=== PATIENT | female | born 1995 | race Caucasian/White ===

== ENCOUNTER → 2019-03-29 | Outpatient (CLI) | payer OTHER, MEDICAID, SELFPAY ==
[2019-03-29 14:43] VITALS: BMI 27.4
[2019-03-29 21:54] LABS: Chlamydia Trachomatis by PCR Negative (Negative); Neisserai gonorrhoeae by PCR Negative (Negative); Probe Check PASS; Sample Adequacy Control PASS; Specimen Processing Control PASS
[2019-04-03 15:48] LABS: HPV Reflexed? NOT INDICATED
== END | disposition home or self-care (01) ==
LOC: LABSPEC 16:52
PROVIDERS: Referring Provider Obstetrics & Gynecology; Visit Provider Obstetrics & Gynecology
DX: Z34.90 Encounter for supervision of normal pregnancy, unspecified, unspecified trimester (principal); Z12.4 Encounter for screening for malignant neoplasm of cervix
CPT/HCPCS: 87086; 87088; 87491; 87591; 87624; 88175; G0145

== ENCOUNTER → 2019-03-29 | Outpatient (CLI) | payer MEDICAID, SELFPAY ==
[2019-03-29 14:43] VITALS: BMI 27.4
[2019-03-29 15:37] LABS: Absolute Lymphocyte Count 2.66 X10^3/uL (0.83-4.51); Absolute Neutrophil Count 8.8 X10^3/uL (2.0-7.7); Basophil# 0.05 X10^3/uL; Basophil% 0.4 % (0-1); Eosinophil# 0.28 X10^3/uL; Eosinophils% 2.2 % (0-5); Hemoglobin 13.3 g/dL (12.0-15.0); Lymphocyte # 2.66 X10^3/ul (4.0); Lymphocyte % 21.2 % (19-41); Mean Corp Hgb Conc 34.1 g/dL (32-36); Mean Corpuscular Hgb 29.8 pg (27.0-32.0); Mean Corpuscular Volume 87.4 fL (81-99); Mean Platelet Vol. 9.5 fl (6.2-12.0); Monocyte# 0.73 X10^3/uL; Monocyte% 5.8 % (0-10); NRBC Flagged by Analyzer 0 % (0-5); Platelet Count 347 K/mm3 (150-450); RBC Distribution Width SD 38.6 fl (35.1-43.9); Red Blood Count 4.46 M/mm3 (4.2-5.4); White Blood Count 12.6 K/mm3 (4.4-11.0)
[2019-03-30 04:46] LABS: Rapid Plasmin Reagin (RPR) NONREACTIVE (NONREACTIVE)
[2019-03-30 09:23] LABS: HIV - WCH Non-Reactive (Nonreactive); Hepatitis B Surface Antigen Non-Reactive (Nonreactive); Rubella IgG 9.8 IU/mL
== END | disposition home or self-care (01) ==
PROVIDERS: Referring Provider Obstetrics & Gynecology; Visit Provider Obstetrics & Gynecology
DX: Z34.90 Encounter for supervision of normal pregnancy, unspecified, unspecified trimester (principal)
CPT/HCPCS: 85025; 86592; 86703; 86762; 86850; 86900; 87340

== ENCOUNTER → 2019-04-16 | Outpatient (CLI) | payer OTHER, MEDICAID, SELFPAY ==
[2019-03-29 14:43] VITALS: BMI 27.4
== END | disposition home or self-care (01) ==
PROVIDERS: Referring Provider Obstetrics & Gynecology; Visit Provider Obstetrics & Gynecology
DX: Z34.82 Encounter for supervision of other normal pregnancy, second trimester (principal)
CPT/HCPCS: 36415

== ENCOUNTER → 2019-05-25 15:20 | Outpatient (CLI) | payer OTHER, MEDICAID, SELFPAY ==
[2019-05-25 14:58] VITALS: BMI 27.4
== END ==
PROVIDERS: Referring Provider Obstetrics & Gynecology; Visit Provider Obstetrics & Gynecology
DX: Z36.9 Encounter for antenatal screening, unspecified (principal)
CPT/HCPCS: 36415

== ENCOUNTER → 2019-07-17 11:28 | Outpatient (CLI) | payer OTHER, MEDICAID, SELFPAY ==
[2019-06-22 14:56] VITALS: BMI 30.7
[2019-07-17 13:20] LABS: Absolute Lymphocyte Count 2.08 X10^3/uL (0.83-4.51); Absolute Neutrophil Count 8.5 X10^3/uL (2.0-7.7); Basophil# 0.03 X10^3/uL; Basophil% 0.3 % (0-1); Eosinophil# 0.19 X10^3/uL; Eosinophils% 1.7 % (0-5); Hematocrit 33.5 % (37-47); Hemoglobin 11.2 g/dL (12.0-15.0); Lymphocyte # 2.08 X10^3/ul (4.0); Lymphocyte % 18.3 % (19-41); Mean Corp Hgb Conc 33.4 g/dL (32-36); Mean Corpuscular Hgb 29.9 pg (27.0-32.0); Mean Corpuscular Volume 89.3 fL (81-99); Mean Platelet Vol. 10.1 fl (6.2-12.0); Monocyte# 0.52 X10^3/uL; Monocyte% 4.6 % (0-10); NRBC Flagged by Analyzer 0 % (0-5); Neutrophil # 8.46 X10^3/uL (2.7-7.7); Neutrophil % 74.5 % (47-70); Platelet Count 338 K/mm3 (150-450); RBC Distribution Width CV 12.2 % (11.6-14.6); RBC Distribution Width SD 40.2 fl (35.1-43.9); Red Blood Count 3.75 M/mm3 (4.2-5.4); White Blood Count 11.4 K/mm3 (4.4-11.0)
[2019-07-17 14:01] LABS: Glucose Challenge Gest 1H 50g 148 mg/dL (70-140)
== END ==
PROVIDERS: Nurse Practitioner Women's Health; Referring Provider Obstetrics & Gynecology; Visit Provider Obstetrics & Gynecology
DX: Z34.90 Encounter for supervision of normal pregnancy, unspecified, unspecified trimester (principal)
CPT/HCPCS: 36415; 82950; 85025

== ENCOUNTER → 2019-07-18 08:42 | Outpatient (CLI) | payer OTHER, MEDICAID, SELFPAY ==
[2019-07-17 14:01] VITALS: BMI 30.7
[2019-07-18 10:08] LABS: Glucose GTT-Gestation. Fasting 99 mg/dL (<105)
[2019-07-18 10:46] LABS: Glucose GTT-Gestational 1 Hr 222 mg/dL (<190)
[2019-07-18 12:35] LABS: Glucose GTT-Gestational 2 Hr 153 mg/dL (<165)
[2019-07-18 13:34] LABS: Glucose GTT-Gestational 3 Hr 64 L (<145)
== END ==
PROVIDERS: Referring Provider Nurse Practitioner Women's Health; Visit Provider Nurse Practitioner Women's Health
DX: O99.810 Abnormal glucose complicating pregnancy (principal); Z3A.00 Weeks of gestation of pregnancy not specified
CPT/HCPCS: 36415; 82951; 82952

== ENCOUNTER 2019-08-20 08:30 | Outpatient (RCR) | payer OTHER, MEDICAID, SELFPAY ==
[2019-07-17 14:01] VITALS: BMI 30.7
== END 2019-08-20 23:59 | disposition home or self-care (01) ==
LOC: NS 08:30
PROVIDERS: Visit Provider Nurse Practitioner Women's Health
DX: Z71.3 Dietary counseling and surveillance (principal); O24.419 Gestational diabetes mellitus in pregnancy, unspecified control; Z3A.00 Weeks of gestation of pregnancy not specified
CPT/HCPCS: 97802; G0108

== ENCOUNTER → 2019-09-26 | Outpatient (CLI) | payer MEDICAID, SELFPAY ==
[2019-09-26 11:21] VITALS: BMI 30.7
== END | disposition home or self-care (01) ==
PROVIDERS: Referring Provider Obstetrics & Gynecology; Visit Provider Obstetrics & Gynecology
DX: Z34.93 Encounter for supervision of normal pregnancy, unspecified, third trimester (principal); Z3A.36 36 weeks gestation of pregnancy
CPT/HCPCS: 87081

== ENCOUNTER 2019-10-24 19:00 | Inpatient (IN) | payer MEDICAID, SELFPAY ==
[2019-07-17 14:01] VITALS: BMI 30.7
[2019-10-18 10:14] VITALS: BMI 30.7
[2019-10-24 19:31] VITALS: BP 143/80; PULSE 100
[2019-10-24 19:33] VITALS: BP 143/80; PULSE 100; TEMP 98.4; O2SAT 98
[2019-10-24 19:44] VITALS: BMI 33.7
[2019-10-24] MEDS: Lactated Ringers 1,000 ML 50 ML IV (19:55)
[2019-10-24 20:18] LABS: Absolute Lymphocyte Count 2.51 X10^3/uL (0.83-4.51); Absolute Neutrophil Count 9.3 X10^3/uL (2.0-7.7); Basophil# 0.01 X10^3/uL; Basophil% 0.1 % (0-1); Eosinophil# 0.14 X10^3/uL; Eosinophils% 1.1 % (0-5); Hematocrit 37.8 % (37-47); Hemoglobin 12.4 g/dL (12.0-15.0); Lymphocyte # 2.51 X10^3/ul (4.0); Lymphocyte % 19.5 % (19-41); Mean Corp Hgb Conc 32.8 g/dL (32-36); Mean Corpuscular Volume 88.5 fL (81-99); Mean Platelet Vol. 11.3 fl (6.2-12.0); Monocyte# 0.77 X10^3/uL; NRBC Flagged by Analyzer 0 % (0-5); Neutrophil # 9.34 X10^3/uL (2.7-7.7); Neutrophil % 72.7 % (47-70); Platelet Count 277 K/mm3 (150-450); RBC Distribution Width CV 13.1 % (11.6-14.6); RBC Distribution Width SD 42.3 fl (35.1-43.9); Red Blood Count 4.27 M/mm3 (4.2-5.4); White Blood Count 12.9 K/mm3 (4.4-11.0)
--- NOTE | 2019-10-24 20:43 | HP.PCM_ITS ---
- Problem List (1) Gestational diabetes Status: Acute Qualifiers: Comment: diet controlled, Growth US q4w at 32 wk. weekly nsts starting at 32 weeks deliver by 40. Growth US 2 normal (2) Status: Acute Qualifiers: Comment: carrier, NIPT low risk. AFP negative. Anatomy FU US normal but still limited views of spine. (3) Supervision of normal Status: Acute Qualifiers: Comment: PRR NICOLE 10/24/19girl juan boyfriend Mohsen (4) Tobacco use complicating Status: Acute Qualifiers: Comment: encouraged cessation History and Physical Date of Admission: 10/24/19 Intake Vital Signs 10/18/19 BMI 30.7 10/18/19 Height 5 ft 6 in 10/18/19 Weight: 209 lb 10/18/19 BMI 33.7 10/18/19 BP 110/86 H Intake Visit Reasons: 39 WK OB/NST Chief Complaint: est ob Syrup Blender Required: No Is patient in pain?: No Allergies BEE STINGS Allergy (Uncoded 10/18/19 10:13) Rash Medications vitamin#30 30 mg iron-10 mg iron-folic acid 1 mg-omg3 capsule cap PO cap 03/29/19 [History Confirmed 10/11/19] blood sugar diagnostic See Rx Instructions .ROUTE .MEDSUPPLY #100 ea 07/18/19 [Rx Confirmed 10/18/19] blood-glucose meter See Rx Instructions .ROUTE .MEDSUPPLY #1 ea 07/18/19 [Rx Confirmed 10/18/19] Last Menstral Period: 01/17/19 Zika: Zika virus screening: Negative : No PFSH PFSH Medical History History of depression (Acute) Family History Grandfather Myocardial infarction Social History (Updated 10/18/19 @ 11:[address] 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 OB Visit NICOLE Calculator Estimated Delivery Date Method Current WG Current Estimate 10/24/19 LMP (Certain) 40w0d Expected Delivery Route/Plan Labor Preferences- labor support person: Mohsen pain management options preferred: epidural if needed cut cord/dad catch: yes : yes PP control planned: pill discussed possible routes of delivery and associated risks: [] special requests: [] Specific Issue/Plans flu vaccine: given tdap vaccine: given rhogam: na LARC form signed: yes Problem list reviewed and updated with the most current plan of care details and appropriate orders placed. Relevant counseling for the gestational age provided. Continue routine care and follow up unless otherwise noted in visit notes/problem list details Initial Weight: Not Recorded Date EGA Weight BP Urine Prot Glucose FHR FuHt Pres Dilation Effaced St Visit Note 04/27/19 14w 2d 184 lb 8 oz 134/80 Negative Negative 150 no vb cramping 05/25/19 18w 2d 188 lb 122/76 Negative Negative 150 no vb cramping 06/22/19 22w 2d 193 lb 134/66 Negative Negative 150 no vb cramping 07/17/19 25w 6d 197 lb 126/70 Negative Negative 154 25 No Vb, LOF. Good FM 08/06/19 28w 5d 194 lb 2 oz 110/62 Negative Negative 160 28 no vb lof good fm no regular ctx BS fairly controlled. tdap. discussed delivery by 40 weeks 08/21/19 30w 6d 195 lb 6 oz 110/75 Negative Negative 150 32 S- no vb lof good fm no regular ctx FBS elevated sometimes- continue to follow 09/04/19 32w 6d 196 lb 4 oz 132/80 Negative Negative 140 33 SM- no vb lof good fm no regular ctx BS well controlled 09/18/19 34w 6d 198 lb 2 oz 117/76 Negative Negative 145 34 MH-reactive NST. Good FM. NO VB, LOF. BS well controlled 09/26/19 36w 0d 200 lb 108/62 Negative Negative 150 36 SM- no vb lof good fm no regular ctx reactive nst gbs today 10/03/19 37w 0d 200 lb 111/75 Negative Negative 10/11/19 38w 1d 202 lb 121/81 Negative Negative 140 37 1 SM- no vb lof good fm no regular ctx BS well controlled 10/18/19 39w 1d 209 lb 110/86 Negative Negative 140 plan IOL by due date Notes Visit Date: 10/18/19 ??No visit notes to display Visit Date: 10/11/19 ??No visit notes to display Visit Date: 10/03/19 ??No visit notes to display Visit Date: 09/26/19 ??No visit notes to display Visit Date: 09/18/19 ??No visit notes to display Visit Date: 09/04/19 ??No visit notes to display Visit Date: 08/21/19 ??No visit notes to display Visit Date: 08/06/19 ??no vb lof good fm no regular ctx BS fairly controlled. tdap. discussed delivery by 40 weeks ??Kiley Haley MD on 08/06/19 Visit Date: 07/17/19 ??No Vb, LOF. Good FM ??Danielle Ugarte NP-Blanca on 07/17/19 Visit Date: 06/22/19 ??no vb cramping ??Kiley Haley MD on 06/22/19 Visit Date: 05/25/19 ??no vb cramping ??Kiley Haley MD on 05/25/19 Visit Date: 04/27/19 ??no vb cramping ??Kiley Haley MD on 04/27/19 ACOG First Trimester First Trimester: Desire for , Alcohol, Tobacco Cessation, Illicit/Recreational Drug/Substance Use, Intimate Partner Violence, Barriers to care, Unstable Housing, Communication Barriers, Environmental/Work Hazards, Anticipated Course of Care, Toxoplasmosis Precations, Use of Any medications, Sexual activity, Exercise, Dental Care, Sauna/Hot tub use, Seat Belt use, Childbirth classes/Hospital facilities, , Travel, Indic ations for US and Screening for Aneuploidy Second Trimester Second Trimester: Signs and Symptoms of Labor, Selecting a care provider, Reproductive Life Planning, Care Planning, Tobacco Cessation, Depression/Anxiety and Intimate Partner Violence Third Trimester Third Trimester: Pain Management Plans, Labor support person(s), Immediate Larc, Movement Monitoring and Infant Feeding Yes ; discussed Trial of Labor after Counseling or discussed Circumcision preference Diagnostics Diagnostics Diagnostics Gest Glucose Tolerance MG/DL 07/18/19 Glucose 1 Hr 50 gm 148 mg/dL (70-140) H 07/17/19 Hgb 11.2 g/dL (12.0-15.0) L 07/17/19 Hct 33.5 % (37-47) L 07/17/19 Details: HIV: Urine Culture: Sequential Screen: NIPT Screen: ROS Const Reports system reviewed and no additional complaints, except as docu Card Reports system reviewed and no additional complaints, except as docu Resp Reports system reviewed and no additional complaints, except as docu GI Reports system reviewed and no additional complaints, except as docu, Reports nausea Reports system reviewed and no additional complaints, except as docu Musc Reports system reviewed and no additional complaints, except as docu Exam Const General: cooperative, healthy appearing, comfortable, anxious HENMT Head: normal to inspection Nose: external nose normal Face and sinus: normal facial exam Neck Neck: normal visual inspection, full ROM, no lymphadenopathy Thyroid: thyroid normal Chest Chest palpation & inspection: normal inspection of the chest Resp Effort & Inspection: normal respiratory effort GI Inspection: normal to inspection Palpation: soft, other (gravid uterus) Other: infant vertex and appropriate size for gestational age Other: Cervical Exam: Extrem General: pedal edema Results POC Urinalysis 2 Dip (Clinic) Office Urine Glucose Negative Last Edit by Jessy Cao on 10/18/19 10:0 7 Office Urine Protein Negative Last Edit by Jessy Cao on 10/18/19 10:0 7 POC Urinalysis 2 Dip (Clinic) Office Urine Glucose Negative Last Edit by Jessy Cao on 10/18/19 10:1 6 Office Urine Protein Negative Last Edit by Jessy Cao on 10/18/19 10:1 6 Assessment & Plan Problems 1. Diet controlled gestational diabetes mellitus (GDM) in third trimester O24.410 2. complicated by tobacco use in first trimester O99.331 3. 39 weeks gestation of Z3A.39 4. Encounter for supervision of normal first in first trimester Z34.01 Orders Orders: OB NST Today O24.419 POC Urinalysis 2 Dip (Clinic) Today POC Urinalysis 2 Dip (Clinic) Today Coding Level of Care Code OB Routine Diagnoses Diet controlled gestational diabetes mellitus (GDM) in third trimester O24.410 ??Gestational diabetes mellitus control: diet-controlled ??Trimester: third trimester complicated by tobacco use in first trimester O99.331 ??Trimester: first trimester 39 weeks gestation of Z3A.39 ??Weeks of gestation: 39 weeks Encounter for supervision of normal first in first trimester Z34.01 ??Normal : normal first ??Trimester: first trimester plan IOL Patient presents IOL, plan management for , pitocin/AROM after cytotec prep overnight Pain management: plans epidural. GBS negative. Management of any complications: check BS per protocol I have reviewed the [facility] and made any clinically relevant updates. UPDATE- I have seen the patient and performed any clinically relevant updates to the history and physical exam. Kiley Haley MD
[2019-10-24] MEDS: miSOPROStol 25 MCG TABLET VAGINAL (21:08)
[2019-10-24 21:30] VITALS: TEMP 99.1; O2SAT 97
[2019-10-24 21:31] VITALS: BP 124/75; PULSE 90
[2019-10-24 21:41] LABS: Bedside Glucose 79 mg/dL (70-110)
[2019-10-24 21:41] LABS: Bedside Glucose 84 mg/dL (70-110)
[2019-10-25] VITALS (59 sets, daily range): BP systolic 118–145; BP diastolic 53–89; PULSE 69–137; RESP 18; TEMP 37; O2SAT 97–100
[2019-10-25] MEDS: miSOPROStol 50 MCG TABLET VAGINAL (01:37)
[2019-10-25 01:51] LABS: Bedside Glucose 72 mg/dL (70-110)
[2019-10-25] MEDS: oxyCODONE 5 MG Tablet PO ×2 (04:25→18:31)
[2019-10-25] MEDS: Lactated Ringers 500 ML 999 ML IV ×2 (06:51→16:26)
[2019-10-25] MEDS: Oxytocin 30 units/NS 500 ml 30 UNITS/500 ML IV.SOLN IV (06:53)
[2019-10-25 07:25] LABS: Bedside Glucose 121 mg/dL (70-110)
[2019-10-25 07:25] LABS: Bedside Glucose 74 mg/dL (70-110)
[2019-10-25] MEDS: fentaNYL-bupivacaine (epidural) 100 ML BAG EPIDURAL ×2 (07:56→12:09)
--- NOTE | 2019-10-25 09:39 | PCM.PN.BLA ---
Progress Note FHT: 130 Moderate variability reactive no decelerations category I tracing [place]: regular Contractions s/p cytotec plan pitocin today, arom clear fluid iupc and fse placed. BS monitoring intrapartum.
[2019-10-25] MEDS: Lactated Ringers 1,000 ML 200 ML IV ×2 (10:01→15:14)
[2019-10-25 11:10] LABS: Bedside Glucose 66 mg/dL (70-110)
[2019-10-25 11:35] LABS: Bedside Glucose 84 mg/dL (70-110)
[2019-10-25 12:45] LABS: Bedside Glucose 83 mg/dL (70-110)
[2019-10-25 13:35] LABS: Bedside Glucose 58 mg/dL (70-110)
[2019-10-25] MEDS: Ondansetron 4 MG/2 ML Vial IV (13:37)
[2019-10-25] MEDS: 0.9% Saline Lock 10 ML Syringe IV ×3 (13:37→19:10)
[2019-10-25 14:01] LABS: Bedside Glucose 68 mg/dL (70-110)
[2019-10-25 14:56] LABS: Bedside Glucose 91 mg/dL (70-110)
[2019-10-25] MEDS: proCHLORPERazine 10 MG/2 ML Vial IV (15:14)
[2019-10-25 15:21] LABS: Bedside Glucose 81 mg/dL (70-110)
[2019-10-25] MEDS: Oxytocin 30 units/NS 500 ml 30 UNITS/500 ML IV.SOLN 334 UNITS IV (16:05)
--- NOTE | 2019-10-25 16:20 | PCM.OPRPT ---
Problem List (1) Gestational diabetes Status: Acute Qualifiers: Comment: diet controlled, Growth US q4w at 32 wk. weekly nsts starting at 32 weeks deliver by 40. Growth US 2/ normal (2) Status: Acute Qualifiers: Comment: carrier, NIPT low risk. AFP negative. Anatomy FU US normal but still limited views of spine. (3) Supervision of normal Status: Acute Qualifiers: Comment: PRR NICOLE 10/24/19girl juan boyfriend Mohsen (4) Tobacco use complicating Status: Acute Qualifiers: Comment: encouraged cessation Vaginal Delivery Maternal Presentation: Medically Indicated Induction iol GDMA1 Method of Induction: Pitocin, Cytotec Amniotic Membrane Rupture Type: Artificial Amniotic Fluid Description: Clear Final NICOLE: 10/24/19 Gestational age: 40 Weeks and 1 Days Date of Procedure: 10/25/19 Pre-Operative Diagnosis: iol gdma1 Post-Operative Diagnosis: same Surgery/ Procedure Performed: Spontaneous Vaginal Delivery Type of Anesthesia: Epidural Description of Procedure: Patient began pushing and delivered the head in the [CURRY] presentation. The head was delivered atraumatically. The anterior and posterior shoulders delivered without complication followed by the rest of the infant and the infant was placed on the maternal abdomen. Delayed cord clamping was employed for approximately 60 seconds. Cord was clamped and cut and gentle traction was applied to the cord and the placenta delivered spontaneously immediately following it was noted to be intact with three-vessel cord. The perineum and vagina were inspected and to have a small first-degree perineal laceration. EBL was 300cc. Patient and infant tolerated delivery well. Presentation: CURRY Placental Delivery Description: Spontaneous Placenta Disposition: [facility] Cord Vessel Description: 3 Vessels Cord Entanglement: None Estimated Blood Loss: 300 Infant A gender: Female Episiotomy Description: None Laceration: Perineal Extension/lac, 1st degree Medications given after delivery: IV Pitocin Complications: None Multi Select Codes - Urinary/Genital Urinary/Genital CPT Codes: 10336 Vaginal Delivery [facility]
--- NOTE | 2019-10-25 16:56 | NURSING ---
removed during pushing by Dr. Haley when delivery imminent
[2019-10-25 18:00] LABS: Bedside Glucose 76 mg/dL (70-110)
[2019-10-25] MEDS: Naproxen 250 MG Tablet 500 MG PO (18:07)
[2019-10-26] VITALS (9 sets, daily range): BP systolic 111–142; BP diastolic 54–84; PULSE 82–110; RESP 12–18; TEMP 36.1–37.5; O2SAT 96
[2019-10-26] MEDS: Naproxen 250 MG Tablet 500 MG PO (04:23)
[2019-10-26 07:06] LABS: Bedside Glucose 97 mg/dL (70-110)
[2019-10-26] MEDS: Acetaminophen 500 MG Tablet 1000 MG PO ×2 (09:19→20:57)
[2019-10-26] MEDS: Ketorolac 10 MG Tablet PO (13:07)
[2019-10-26] MEDS: oxyCODONE 5 MG Tablet PO (17:46)
[2019-10-27] MEDS: Naproxen 250 MG Tablet 500 MG PO (00:15)
[2019-10-27 02:00] VITALS: BP 114/68; PULSE 84; RESP 20; TEMP 37.4
[2019-10-27] MEDS: oxyCODONE 5 MG Tablet PO ×2 (02:35→08:00)
--- NOTE | 2019-10-27 06:45 | PCM.PN.OB ---
Subjective: late entry - patient seen 730 am 10/26/19. doing well no complaints pain controlled no CP SOB N V ambulating well tolerating po lochia moderate, - Physical Exam Vitals/I&O's: Vital Signs Temp Pulse Resp BP Pulse Ox 99.3 F H 84 20 H 114/68 96 10/27/19 02:00 10/27/19 02:00 10/27/19 02:00 10/27/19 02:00 10/26/19 19:44 Oxygen Delivery Method Room Air Weight: 209 lb Body Mass Index (BMI) 33.7 Intake and Output for Last 24 Hours 10/25/19 10/26/19 10/27/19 23:59 23:59 23:59 Intake Total 5092.46 / 5092.46 Output Total 3550 / 3550 Balance 1542.46 / 1542.46 Laboratory Results 10/26/19 06:58: POC Glucose 97 Current Medications Acetaminophen (Tylenol) 1,000 mg PO Q8H PRN PRN PRN Reason: Pain Score 1-3 Last Admin: 10/26/19 20:57 Dose: 1,000 mg Documented by: Bisacodyl (Dulcolax) 10 mg RECTAL UD PRN PRN Reason: If no BM Dibucaine (Dibucaine) 1 applic TOPICAL TID PRN PRN; Protocol PRN Reason: Discomfort Glucagon () 1 mg IM .X1 PRN PRN Reason: Hypoglycemia Hydrocortisone (Hytone) 1 applic TOPICAL TID PRN PRN; Protocol PRN Reason: Discomfort Dextrose (Dextrose 10%-Water) 250 mls @ 999 mls/hr IV X1 PRN; Protocol PRN Reason: HYPOGLYCEMIA Methylergonovine Maleate (Methergine) 0.2 mg IM X1 PRN PRN Reason: Excess bleeding/uterine atony Naproxen (Naprosyn) 500 mg PO Q8H PRN PRN PRN Reason: Pain Score 1-310 Last Admin: 10/27/19 00:15 Dose: 500 mg Documented by: Ondansetron HCl (Zofran) 4 mg IV Q4H PRN PRN PRN Reason: Nausea Oxycodone HCl (Oxyir) 5 - 10 mg PO Q4H PRN PRN PRN Reason: Pain Score 4-1010 Last Admin: 10/27/19 02:35 Dose: 5 mg Documented by: Senna/Docusate Sodium (Senokot-S, Rashida-Colace) 1 - 2 tablet PO DAILY PRN PRN PRN Reason: Constipation Simethicone (Mylicon) 80 mg PO PCHS PRN PRN Reason: Indigestion/Stomach pain Sodium Chloride () 5 - 15 ml IV UD PRN PRN Reason: SALINE FLUSH Last Admin: 10/25/19 19:10 Dose: 10 ml Documented by: Medical Necessity - Tobacco Use Smoking Status: Current every day smoker Assessment/Plan All Active Problems (Last Reviewed 10/18/19 @ 10:14 by Jessy Cao) Gestational diabetes (Acute) Tobacco use complicating (Acute) (Acute) Supervision of normal (Acute) s/p PPD # 1 1. routine post delivery care 2. gdma1 3. rh positive 4. rubella immune
--- NOTE | 2019-10-27 06:48 | PCM.PN.OB ---
Subjective: doing well no complaints pain controlled no CP SOB N V ambulating well tolerating po lochia moderate - Physical Exam Vitals/I&O's: Vital Signs Temp Pulse Resp BP Pulse Ox 99.3 F H 84 20 H 114/68 96 10/27/19 02:00 10/27/19 02:00 10/27/19 02:00 10/27/19 02:00 10/26/19 19:44 Oxygen Delivery Method Room Air Weight: 209 lb Body Mass Index (BMI) 33.7 Intake and Output for Last 24 Hours 10/25/19 10/26/19 10/27/19 23:59 23:59 23:59 Intake Total 5092.46 / 5092.46 Output Total 3550 / 3550 Balance 1542.46 / 1542.46 General: Alert, Oriented x3 Laboratory Results 10/26/19 06:58: POC Glucose 97 Current Medications Acetaminophen (Tylenol) 1,000 mg PO Q8H PRN PRN PRN Reason: Pain Score 1-3/10 Last Admin: 10/26/19 20:57 Dose: 1,000 mg Documented by: Bisacodyl (Dulcolax) 10 mg RECTAL UD PRN PRN Reason: If no BM Dibucaine (Dibucaine) 1 applic TOPICAL TID PRN PRN; Protocol PRN Reason: Discomfort Glucagon () 1 mg IM .X1 PRN PRN Reason: Hypoglycemia Hydrocortisone (Hytone) 1 applic TOPICAL TID PRN PRN; Protocol PRN Reason: Discomfort Dextrose (Dextrose 10%-Water) 250 mls @ 999 mls/hr IV X1 PRN; Protocol PRN Reason: HYPOGLYCEMIA Methylergonovine Maleate (Methergine) 0.2 mg IM X1 PRN PRN Reason: Excess bleeding/uterine atony Naproxen (Naprosyn) 500 mg PO Q8H PRN PRN PRN Reason: Pain Score 1-3/10 Last Admin: 10/27/19 00:15 Dose: 500 mg Documented by: Ondansetron HCl (Zofran) 4 mg IV Q4H PRN PRN PRN Reason: Nausea Oxycodone HCl (Oxyir) 5 - 10 mg PO Q4H PRN PRN PRN Reason: Pain Score 4-10/10 Last Admin: 10/27/19 02:35 Dose: 5 mg Documented by: Senna/Docusate Sodium (Senokot-S, Rashida-Colace) 1 - 2 tablet PO DAILY PRN PRN PRN Reason: Constipation Simethicone (Mylicon) 80 mg PO PCHS PRN PRN Reason: Indigestion/Stomach pain Sodium Chloride () 5 - 15 ml IV UD PRN PRN Reason: SALINE FLUSH Last Admin: 10/25/19 19:10 Dose: 10 ml Documented by: Medical Necessity - Tobacco Use Smoking Status: Current every day smoker Assessment/Plan All Active Problems (Last Reviewed 10/18/19 @ 10:14 by Jessy Cao) Gestational diabetes (Acute) Tobacco use complicating (Acute) (Acute) Supervision of normal (Acute) s/p PPD # 2 1. routine post delivery care 2. gdma1 3. rh positive 4. rubella immune
--- NOTE | 2019-10-27 06:49 | DCINST_ITS ---
Discharge Diet: No Restrictions Discharge Activity: Return to Normal Activity, May not drive while taking narcotic pain medications., May Shower May resume sexual activity in: 4-6 weeks Call your doctor if your incision/area has: Continuous Slow Oozing, Sudden Increased Bleeding, Increased Pain/ Swelling, Increased Redness, Foul Smelling Discharge Additional Instructions: If you experience any of the following, contact your healthcare provider. * Bleeding that soaks a pad every hour for 2 hours * Fever 100.4 or higher * Unrelieved incision or abdominal pain * Swelling, redness, discharge or bleeding from your incision or episiotomy site * Your incision begins to separate * Problems urinating (including inability to urinate or burning while urinating). * Visual changes * Severe headache * Flu-like symptoms * Pain or redness in one of both of your breasts * Pain, warmth, tenderness or swelling in your legs, especially the calf area * Frequent nausea and vomiting * Symptoms of depression or anxiety If you experience any of the following, call 911 or go to the nearest Emergency Room. * Chest pain * Problems breathing * Seizure activity * Partial or complete paralysis of a body part, slurred speech, weakness or drooping of the face, or a sudden inability to walk or hold your balance Allergies/Adverse Reactions: Allergies BEE STINGS Allergy (Mild, Uncoded 10/24/19 19:59) Rash Medications to take at Discharge vitamin#30 30 mg iron-10 mg iron-folic acid 1 mg-omg3 capsule 1 cap PO DAILY cap 03/29/19 Blood Sugar Diagnostic [Truetrack Test] See Rx Instructions .ROUTE .MEDSUPPLY 10/24/19 Blood-Glucose Meter [Contour] See Rx Instructions .ROUTE .MEDSUPPLY 10/24/19 Please Follow Up With: Kiley Haley MD - [phone] When: Call to make an appointment with your doctor in 6 weeks. If you had elevated Blood pressure or 4th degree laceration you will need to be seen in 2 weeks. Primary Care Physician: Care Physician,No Primary [Primary Care Provider] - Test Results: Test results from this visit will be discussed in further detail at your follow- up appointment, if applicable.
[2019-10-27 07:48] VITALS: BP 128/71; PULSE 80; RESP 16; TEMP 37; O2SAT 100
--- NOTE | 2019-10-27 08:55 | NURSING ---
Met with Nelli in the Special Care Nursery during her baby's feeding time. She was trying to latch baby holding her in the cradle position and stated she felt frustrated when I entered the room. We discussed breast massage before every feeding/pumping session AND massaging during pumping. I educated her on proper hand position on breast while feeding, stressing the importance of keeping her hands back from the areola. We discussed different positions and successfully latched baby in the football hold with very minimal assistance from IBCLC. Verbal cues were used to guide mother to a successful latch. I showed Nelli what baby's lips look like in the flanged out position during and to check for that when she is feeding. We discussed the importance of pumping after each feeding while she is here and that pumping in these early days if for stimulation which helps milk supply, we are not focussed on obtaining a specific quantity of colostrum/ breastmilk at this time. Mother is using Lansinoh on her nipples as needed for soreness.
[2019-10-27 14:30] VITALS: BP 120/75; PULSE 91; RESP 16; TEMP 36.6; O2SAT 100
== END 2019-10-27 17:25 | disposition home or self-care (01) | DRG 560 ==
PROVIDERS: Admitting Provider Obstetrics & Gynecology; Referring Provider Obstetrics & Gynecology; Visit Provider Obstetrics & Gynecology
DX: O24.420 Gestational diabetes mellitus in childbirth, diet controlled (principal); O99.334 Smoking (tobacco) complicating childbirth; F17.200 Nicotine dependence, unspecified, uncomplicated; O70.0 First degree perineal laceration during delivery; Z37.0 Single live birth; Z3A.40 40 weeks gestation of pregnancy
CPT/HCPCS: 59025; 59050; 82962; 85025; 86850; 86900; 86901; 99218; J7120; A4216; G0378; J2405

== ENCOUNTER 2020-02-16 18:00 | Emergency (ER) | payer MEDICAID, SELFPAY ==
[2019-11-28 14:22] VITALS: BMI 33.7
[2020-02-16 18:01] VITALS: BP 136/53; PULSE 112; RESP 17; TEMP 36.3; O2SAT 96; BMI 30.7
--- NOTE | 2020-02-16 18:15 | ED.VIS.GEN ---
History of Present Illness Chief Complaint: Upper Extremity Injury Informant: Patient Onset: Month(s) Context: Gradual Onset Timing: Waxes and wanes Current Severity: Moderate Maximum Severity: Moderate Narrative: Patient presents secondary to continued right wrist pain. She is left-hand dominant. She reports in November she developed right wrist pain. There was no known injury. She was seen at an outside facility in December and was told to wear a Velcro wrist brace. In spite of doing that she notices no significant improvement. Imaging studies were not done. - Past Medical History (1) History of gestational diabetes Status: Resolved Past Medical History - Allergies and Home Meds Allergies/Adverse Reactions: Allergies BEE STINGS Allergy (Mild, Uncoded 02/16/20 18:01) Rash Primary Care Physician: [facility] Doctor,Out of [NON-STAFF] - Prior records reviewed: Yes Lives: With Family Smoking Status: Current every day smoker Review of Systems General: Denies: Chills, Fever Eyes: Denies: Visual changes - bilaterally ENT: Denies: Bilateral ear pain Cardiovascular: Denies: Chest pain Respiratory: Denies: Dyspnea, Cough Gastrointestinal: Denies: Abdominal pain, Nausea, Vomiting, Diarrhea Musculoskeletal: Reports: Extremity Pain Skin: Denies: Rash Neurological: Denies: Headache Hematologic: Denies: Easy bruising, Easy bleeding Allergy: Denies: Uticaria Physical Exam Vital Signs/Narrative: Vital Signs Temp Pulse Resp BP Pulse Ox 02/16/20 18:01 97.3 F L 112 H 17 136/53 H 96 Inital Vital Signs reviewed: Yes General: Well nourished, Well developed Head: Normocephalic ENT: Moist mucous membranes Neck: Supple Cardiovascular: Regular rate, Regular rhythm Respiratory: No distress Abdomen: Soft, Nontender Extremities: - - Mild tenderness along the radial aspect of the right wrist. No significant edema. No overlying skin changes. No pain with axial load of the thumb. Normal cap refill distally with good sensation and range of motion. Neurological: Alert, Oriented x3 Psychological: Normal affect Diagnostic/Tx/Re-eval Impressions Wrist X-Ray 02/16/20 18:18 IMPRESSION: Normal x-ray examination of the wrist. Electronically Signed: Brenden Sacnhez MD at 19:00 EDT , Service support , 02/16/20 18:18 Wrist min 3 Views [RAD] Stat - Medical Decision Making Test results discussed with patient. She will continue to wear her wrist splint. She will be treated with a course of prednisone. She is referred to Dr. Taylor, on-call for orthopedics if not improving. ED Disposition - Plan for ED Patient: Disposition: Home or Assisted Living Diagnosis: Wrist sprain Instructions: ED Sprain Wrist Prescriptions: Prednisone [Deltasone] 40 mg PO DAILY #8 tab Transmission Status: Pending to [id number] Referrals: [facility] Doctor,Out of [NON-STAFF] - Horacio Taylor DO [STAFF PHYSICIAN] - 1 Week if not improving
--- NOTE | 2020-02-16 18:18 | RAD_ITS ---
STUDY: X-RAY - RIGHT WRIST REASON FOR EXAM: Female, 24 years old. NKI -- PAIN SINCE NOVEMBER TECHNIQUE: 3 view(s) of the wrist were obtained. COMPARISON: None. FINDINGS: Normal visualized distal radius and ulna. Normal radiocarpal articulation. Normal distal radioulnar articulation. Normal carpal bones. Normal carpal articulations. Normal carpometacarpal articulation of the thumb. Normal second through fifth carpometacarpal articulations. Normal visualized metacarpal bones. The soft tissue structures are unremarkable. There is no demonstrated acute fracture. RAD/Wrist min 3 Views IMPRESSION: Normal x-ray examination of the wrist. Electronically Signed: Brenden Sanchez MD at 19:00 EDT , Service support ,
[2020-02-16 20:15] VITALS: BP 125/86; PULSE 88; TEMP -8.8; TEMP 16; O2SAT 97
== END 2020-02-16 20:15 | disposition home or self-care (01) ==
PROVIDERS: Emergency Provider Emergency Medicine
DX: S63.501A Unspecified sprain of right wrist, initial encounter (principal); X58.XXXA Exposure to other specified factors, initial encounter; Y93.9 Activity, unspecified; Y92.9 Unspecified place or not applicable; F17.200 Nicotine dependence, unspecified, uncomplicated
CPT/HCPCS: 73110; 99282

== ENCOUNTER 2022-01-25 22:33 | Emergency (ER) | payer OTHER, MEDICAID, SELFPAY ==
[2022-01-25 22:34] VITALS: BP 149/94; PULSE 120; RESP 18; TEMP 36.1; O2SAT 99; BMI 33.0
[2022-01-25] MEDS: SUMAtriptan 6 MG/0.5 ML Vial SC (22:44)
--- NOTE | 2022-01-25 23:05 | EDS_ITS ---
HPI History of Present Illness Chief Complaint: General Illness Informant: patient Onset/Context/Timing Onset: Weeks Narrative Narrative: Presents worsening paresthesias along ulnar aspect the right arm. She has been on dealing with left arm paresthesias on the ulnar aspect. She seen Ortho Dr. Taylor last months was prescribed a specialized brace and put on meloxicam. She reports was too early for nerve testing. She does not know when her next follow-up is. She states she started having right-sided symptoms and told him that. However that has progressed. She is left-hand dominant. She works with both arms at [employer]. She denies leaning on her elbows. Denies any injuries. States there is some weakness with doing her activities. This evening 6 PM nontraumatic headache photophobia. No fevers. No nausea or vomiting. No aura. She states she took 9 Advil's total with no relief. No cardiac history. No abdominal pain. Prior similar symptoms: Yes [facility] Medical History (Updated 01/25/22 @ 23:[address] Cezar Javier DO) History of depression Home Medications fluoxetine 40 mg capsule 40 mg PO DAILY cap 01/06/22 [History Last Taken Unknown] lorazepam 0.5 mg tablet 0.5 mg PO PRN PRN tab 01/06/22 [History Last Taken Unknown] meloxicam 15 mg tablet 15 mg PO DAILY #30 tab 01/06/22 [Rx Last Taken Unknown] Allergy/AdvReac Type Severity Reaction Status Date / Time BEE STINGS Allergy Mild Rash Uncoded 01/25/22 22:41 Family History Grandfather Myocardial infarction Social History Smoking Status: Current some day smoker tobacco type: cigarettes alcohol intake: never substance use type: does not use caffeine: Yes what type of physical activity do you participate in: walking seatbelt use: always do you feel safe at home: Yes additional social history: [employer]- [employer] ROS ROS ED Constitutional Constitutional ED: Denies chills, fever(s) or sweats Eyes Eyes: Denies change in vision ENT ENT ED: Denies dysphagia or sore throat Cardiovascular Cardiovascular: Denies chest pain, leg edema, palpitations or racing heartbeat Respiratory/Chest Respiratory/Chest: Denies cough, dyspnea or dyspnea on exertion Gastrointestinal Gastrointestinal: Denies abdominal pain, diarrhea, nausea or vomiting Genitourinary Genitourinary ED: Denies dysuria, hematuria or urinary frequency Musculoskeletal Musculoskeletal: Denies back pain, extremity pain or neck pain Integumentary Denies rash or wounds Neurologic Neurologic: Reports headache(s), paresthesias and weakness EXAM Physical Exam Const Vital Signs: 01/25/22 22:34 01/25/22 22:42 Temperature 97.0 F L Temperature Source Temporal Pulse Rate 120 H Respiratory Rate 18 Respiratory Effort Normal Respiratory Pattern Normal Blood Pressure 149/94 H Blood Pressure Mean 112 Pulse Ox 99 Oxygen Delivery Method Room Air Positive well nourished and well developed General Appearance ED: well developed and NAD HEENT Reports moist mucous membranes normocephalic and atraumatic Eyes PERRL, EOMs intact bilaterally and conjunctivae normal General Eye ED: Yes normal appearance of both eyes Neck no lymphadenopathy and supple Neck Narrative: No meningismus. Negative Spurling's. General: Negative for tenderness Chest Wall Chest: Negative for tenderness Resp normal respiratory effort and normal air movement Effort and Inspection: symmetric chest movement; Negative for respiratory distre ss Cardio regular rhythm and no murmurs Rate: tachycardic Peripheral Pulses: pulses 2+ throughout GI normal to inspection, nondistended, normoactive bowel sounds and non-tender Palpation: Negative for guarding or rebound tenderness present Back/Spine no CVA tenderness and no thoracic nor lumbar tenderness Extremity normal to inspection Extremity Narrative: Negative Tinel's to the cubital tunnel bilaterally. General Extremety ED: Negative for edema or tenderness General Extremity: Negative for edema Neuro oriented x3 Neuro Narrative: Reported decreased sensation ulnar aspect of the forearms bi laterally. There is slight weakness to abductor's of the hand bilaterally however is symmetric. Sensorium / Orientation: awake and alert Skin no rashes or lesions noted and no wounds MDM MDM MDM Narrative Medical decision making narrative: Patient has been diagnosed with cubital tunnel syndrome left progressing on the right. She is followed by orthopedics. This is not an emergency situation. 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 For her headache there is no meningismus. She is given Imitrex monitored with improvement of symptoms. I discussed appropriate use of NSAIDs for which she will avoid due to being on meloxicam. She will use Tylenol as needed. She will follow-up with her orthopedist for further testing and treatment as an outpatient. All questions were answered. Discharge Plan Triage Chief Complaint: General Illness ED Provider: Cezar Javier Dx/Rx/DC Orders Clinical Impression: Cubital tunnel syndrome, bilateral, Headache Instructions: What is Cubital Tunnel Syndrome?, Self-Care for Headaches Prescriptions: No Action lorazepam 0.5 mg tablet 0.5 mg PO PRN PRN (Reason: Anxiety) RF: 0 fluoxetine 40 mg capsule 40 mg PO DAILY RF: 0 meloxicam 15 mg tablet 15 mg PO DAILY Qty: 30 RF: 0 Primary Care Provider: Miguelangel Levi Referrals: Horacio Taylor DO [STAFF PHYSICIAN] - 3-5 Days Miguelangel Levi [Primary Care Provider] - 1 Week Activity Restrictions/Additional Instructions: 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 Continue your meloxicam. Follow-up with Dr. Taylor. Avoid other anti-inflammatories as you are already on meloxicam. May use Tylenol 1 g every 6 hours as needed. Disposition Disposition: Home, Self Care Discharge Date/Time: 01/25/22 23:50
== END 2022-01-25 23:50 | disposition home or self-care (01) ==
PROVIDERS: Emergency Provider Emergency Medicine; PCP Student in an Organized Health Care Education/Training Program; Visit Provider Emergency Medicine
DX: G56.23 Lesion of ulnar nerve, bilateral upper limbs (principal); R51.9 Headache, unspecified; F32.A Depression, unspecified; Z79.899 Other long term (current) drug therapy; F17.210 Nicotine dependence, cigarettes, uncomplicated
CPT/HCPCS: 96372; 99282; J3030

== ENCOUNTER → 2022-03-24 | Outpatient (CLI) | payer OTHER, MEDICAID, SELFPAY ==
--- NOTE | 2022-03-24 15:15 | MRI_ITS ---
EXAM: MR CERVICAL SPINE WITHOUT INTRAVENOUS CONTRAST CLINICAL INDICATION: pain/numbness bilat arms TECHNIQUE: Multiplanar and multisequence MR images of the cervical spine without intravenous contrast were performed. This report was created using [employer] report generation technology. COMPARISON: XR Mar 12 2022 8:35am FINDINGS: VERTEBRAE: Unremarkable. Normal vertebral bodies and posterior elements. Normal alignment. Normal craniocervical junction and cervicothoracic junction. No spondylolisthesis. There is preservation of the normal cervical lordosis. SPINAL CORD: Unremarkable in signal and morphology. SOFT TISSUES: Unremarkable. No prevertebral soft tissue swelling. LYMPH NODES: Unremarkable. There is no cervical adenopathy. DISCS/SPINAL CANAL/NEURAL FORAMINA: C2-C3: Unremarkable. Normal disc height and morphology. Normal spinal canal. Normal neuroforamina. C3-C4: Unremarkable. Normal disc height and morphology. Normal spinal canal. Normal neuroforamina. C4-C5: Unremarkable. Normal disc height and morphology. Normal spinal canal. Normal neuroforamina. C5-C6: Unremarkable. Normal disc height and morphology. Normal spinal canal. Normal neuroforamina. C6-C7: Unremarkable. Normal disc height and morphology. Normal spinal canal. Normal neuroforamina. C7-T1: Unremarkable. Normal disc height and morphology. Normal spinal canal. Normal neuroforamina. MRI/Spine Cervical (Routine) IMPRESSION: Unremarkable MRI of the cervical spine. Electronically Signed: Jak Gao MD at 16:51 EDT ,
== END | disposition home or self-care (01) ==
PROVIDERS: PCP Student in an Organized Health Care Education/Training Program; Visit Provider Orthopaedic Surgery
DX: R20.0 Anesthesia of skin (principal); R20.2 Paresthesia of skin; M54.12 Radiculopathy, cervical region
CPT/HCPCS: 72141

== ENCOUNTER 2022-05-23 07:37 | Emergency (ER) | payer MEDICAID, SELFPAY ==
[2022-05-23 07:39] VITALS: BP 132/90; PULSE 90; RESP 16; TEMP 36.6; O2SAT 99; BMI 30.9
--- NOTE | 2022-05-23 07:46 | RAD_ITS ---
STUDY: X-RAY - RIGHT ANKLE REASON FOR EXAM: Female, 26 years old. injury TWISTED ANKLE, PAIN LATERAL TECHNIQUE: 3 view(s) of the ankle. COMPARISON: None. FINDINGS: Normal visualized distal tibia and fibula. Normal medial and lateral malleoli. Normal tibiotalar articulation and ankle mortise. Normal visualized talus and calcaneus. The visualized subtalar, talonavicular, calcaneocuboid and tarsal articulations are normal. There is no demonstrated fracture. Mild soft tissue swelling is present around the ankle. RAD/Ankle min 3 Views IMPRESSION: 1. Mild soft tissue swelling Electronically Signed: Brenden Sanchez MD at 8:14 EDT ,
--- NOTE | 2022-05-23 07:46 | ED.VIS.LOWEX ---
HPI History of Present Illness Chief Complaint: Lower Extremity Injury Informant: patient Occured/Mechanism Comment: Injured on a curb she was stepping onto, unsure if she twisted or what happened. Onset/Context/Timing Onset: Yesterday Context: Sudden Onset Timing: Continuous Quality of Pain: Aching Location: Right ankle Current Severity: Moderate Maximum Severity: Moderate Worsened by: Walking, moving Relieved by: Resting Associated Symptoms Associated Symptoms: Negative for Parasthesia, Weakness or Loss of Funtion Narrative Narrative: Twisted her ankle on a curb yesterday, she has been hobbling on it and walking ever since. She is sprained it before and suspects that is what she did. No other injuries. Swelling laterally. [facility] Medical History (Updated 05/23/22 @ 07:[address] Stone Castellon MD) History of depression Home Medications fluoxetine 40 mg capsule 40 mg PO DAILY 01/06/22 [History Last Taken Unknown] lorazepam 0.5 mg tablet 0.5 mg PO PRN PRN Anxiety 01/06/22 [History Last Taken Unknown] meloxicam 15 mg tablet 15 mg PO DAILY #30 tabs 01/06/22 [Rx Last Taken Unknown] Allergy/AdvReac Type Severity Reaction Status Date / Time bee venom protein (honey bee) Allergy Rash Verified 05/23/22 07:39 Family History Grandfather Myocardial infarction Social History Smoking Status: Current some day smoker tobacco type: cigarettes alcohol intake: never substance use type: does not use caffeine: Yes what type of physical activity do you participate in: walking seatbelt use: always do you feel safe at home: Yes additional social history: [employer] ROS ROS ED Constitutional Constitutional ED: Denies chills or fever(s) Musculoskeletal Musculoskeletal: Reports extremity pain; Denies neck pain Integumentary Denies Abrasions, rash or wounds Neurologic Neurologic: Denies paresthesias or weakness EXAM Physical Exam Const Vital Signs: 05/23/22 07:39 Temperature 97.8 F Temperature Source Temporal Pulse Rate 90 Respiratory Rate 16 Blood Pressure 132/90 H Blood Pressure Mean 104 Pulse Ox 99 Oxygen Delivery Method Room Air Positive well nourished and well developed General Appearance ED: well developed and NAD Neck full ROM and supple Back/Spine normal ROM and normal to inspection Extremity Extremity Narrative: Tenderness and swelling about the lateral malleolus right ankle, nontender medial malleolus, base of the fifth metatarsal, proximal fibula. No instability. There is no movement or significant pain with applying lateral forces to the foot about the ankle. Skin intact no other injuries. Neuro oriented x3, no focal motor deficits and no sensory deficits noted Sensorium / Orientation: alert Psych mental status grossly normal and thought process normal Skin no wounds Rashes: no rashes MDM MDM MDM Narrative Medical decision making narrative: Three-view x-ray series obtained of the right ankle and on my interpretation it is normal showing no acute bony abnormality or mortise asymmetry. Patient will be placed in an Aircast and given appropriate discharge instructions, she was given a dose of Naprosyn as well, she will be offered crutches if she needs them after applying the Aircast. Discharge Plan Triage Chief Complaint: Lower Extremity Injury ED Provider: Stone Castellon Dx/Rx/DC Orders Clinical Impression: Right ankle sprain Instructions: ED Ankle Sprain (Adult) Prescriptions: No Action lorazepam 0.5 mg tablet 0.5 mg PO PRN PRN (Reason: Anxiety) Label Comments: TAKE 1 TABLET BY MOUTH TWICE DAILY NEEDED FOR PANIC ATTACK SYMPTOMS fluoxetine 40 mg capsule 40 mg PO DAILY meloxicam 15 mg tablet 15 mg PO DAILY Qty: 30 0RF Rx Instructions: Do not take in conjunction with other NSAIDs. Tylenol is okay. Primary Care Provider: Miguelangel Levi Referrals: Thomas Green MD [Med Staff - Active Staff] - (if not improving after 2 weeks) Miguelangel Levi [Primary Care Provider] - Disposition Disposition: Home, Self Care
[2022-05-23] MEDS: Naproxen 250 MG Tablet 500 MG PO (08:36)
== END 2022-05-23 08:42 | disposition home or self-care (01) ==
LOC: ED 07:53
PROVIDERS: Emergency Provider Emergency Medicine; PCP Student in an Organized Health Care Education/Training Program; Visit Provider Emergency Medicine
DX: S93.401A Sprain of unspecified ligament of right ankle, initial encounter (principal); F17.210 Nicotine dependence, cigarettes, uncomplicated; X50.1XXA Overexertion from prolonged static or awkward postures, initial encounter
CPT/HCPCS: 73610; 99283

== ENCOUNTER 2022-09-15 13:42 | Day surgery (SDC) | payer MEDICAID, SELFPAY ==
[2022-09-15] VITALS (8 sets, daily range): BP systolic 121–145; BP diastolic 85–100; PULSE 96–103; RESP 17–18; TEMP 36.4–37.3; O2SAT 98–100; BMI 33.4
--- NOTE | 2022-09-15 | POC_PTH ---
PATIENT: NAVID HATFIELD LOC: [facility] [place] U[place][id number] AGE/SX: 26/F ROOM: RE09/15/[address]: Dr. Priya Castillo DO : 1995 BED: DIS: 09/15/2022 SPEC #: [id number] RECD: 09/16/22 08:40 STATUS: MERLE REAdrienne #: [id number] LORE: 09/15/22 00:[address]: Priya Castillo DEPT: SURGICAL PATHOLOGY RECD BY: Antoine Ornelas ENTERED: 09/16/22 09:35 SP TYPE: PROD CONC OTHR DR: Miguelangel Levi Tissues: Product of conception, NOS Procedures: Surgery Specimen Level IV HEADER OPERATION: Suction dilation and curettage PRE-OP DIAGNOSIS: Missed with demise before 20 completed weeks of gestation TISSUE SUBMITTED: Products of conception MICROSCOPIC DIAGNOSIS Endometrium, curettage: Chorionic villi, decidualized stroma and trophoblastic cells consistent with products of conception. AM:nilson 09/17/2022 MICROSCOPIC DESCRIPTION Slides are reviewed. GROSS DESCRIPTION Received in fixative is one container labeled with the patient's name and designated products of conception. The specimen consists of multiple irregular fragments of light to dark cervantes soft tissue that in aggregate measure 11 x 8 x 1 cm. parts are not grossly recognized. Plastic Worker portions are submitted in one cassette. / AM:nilson 09/16/2022 TC:5 CPT: 74754
[2022-09-15] MEDS: Doxycycline 100 MG CAPSULE PO (14:15)
[2022-09-15] MEDS: Lactated Ringers 1,000 ML 15 ML IV (14:16)
[2022-09-15 14:19] LABS: Hematocrit 39.5 % (37-47); Hemoglobin 13.3 g/dL (12.0-15.0); Mean Corp Hgb Conc 33.7 g/dL (32-36); Mean Corpuscular Hgb 29.6 pg (27.0-32.0); Mean Corpuscular Volume 87.8 fL (81-99); Mean Platelet Vol. 9.3 fl (6.2-12.0); Platelet Count 355 K/mm3 (150-450); RBC Distribution Width CV 11.9 % (11.6-14.6); RBC Distribution Width SD 38.5 fl (35.1-43.9); White Blood Count 10.5 K/mm3 (4.4-11.0)
[2022-09-15] MEDS: Lidocaine 1% (30 ml sdv) 30 ML Vial (16:45)
--- NOTE | 2022-09-15 17:01 | PCM.OP.BLANK ---
Operative Report Date of Procedure: 09/15/22 Preoperative diagnosis: 10 weeks missed Postoperative diagnosis: 10 weeks missed Surgery: Suction dilation and curettage Surgeon: Dr. Priya Castillo, Urine output: 20cc Fluids: 900cc Estimated blood loss: 100cc Details of the procedure The patient was taken to the operating room and placed under MAC local anesthesia. She was prepped and draped in the normal sterile fashion the dorsal lithotomy position. Bladder was drained of clear urine and anterior lip of the cervix was grasped and the uterus sounded to 12cm. Cervix was progressively dilated to allow passage of a 9 mm suction curette. Progressive passes were made removing the retained products of conception without complication. Sharp curettage confirmed complete removal of the retained products. A follow up ultrasound confirmed an empty uterus. All instruments were removed from the vagina and excellent hemostasis was noted and the patient was taken to recovery in stable condition. Multi Select Codes Urinary/Genital Urinary/Genital CPT Codes: 53443 Surg Trtmt missed Ab 1TM
--- NOTE | 2022-09-15 17:02 | DCINST_ITS ---
Discharge Instructions Diet Discharge Diet: No restrictions Activity Discharge Activity: Return to Normal Activity, May Shower and May Take a Tub Bath (after 1 week) May resume sexual activity in: 1-2 weeks Weight Bearing Status: Weight bearing as tolerated Lifting Restrictions: none Dressing / Incision Call your doctor if you observe: Fever of 101 or Higher, Using more than 1 pad per hour, Shortness of breath and Uncontrolled pain Follow Up Care Please Follow Up With: Priya Castillo DO When: Call [phone] to schedule appointment. Test Results: Test results from this visit will be discussed in further detail at your follow- up appointment, if applicable. 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
--- NOTE | 2022-09-15 17:38 | PCM.HP.BLA ---
History and Physical Date of Admission: 09/15/22 Intake Vital Signs ? 05/23/2207:39 09/15/2307:33 09/15/2307:35 Height 5 ft 6 in 5 ft 6 in 5 ft 6 in Weight: 192 lb 209 lb 8 oz ? BMI 30.9 33.7 ? BP 132/90 H 120/80 ? Respiration 16 ? ? Pulse 90 ? ? Temp 97.8 F ? ? Pulse Oximetry (%) 99 ? ? Intake Visit Reasons:?NOB LMP 07/04/22,? JV to scan Chief Complaint: NOB Geological Aide Required: No Is patient in pain?: No Allergies bee venom protein (honey bee) Allergy (Verified 09/15/22 08:34) Rash Medications vitamin no.[id number] 28 mg iron-1 mg-200 mg capsule (MATH AND PHYSICS INSTRUCTOR-PNV-DHA) cap PO 08/30/22 [History] Last Menstrual Period: 07/04/22 Zika: Zika virus screening: Negative : No PFSH PFSH Medical History?(Updated 09/15/22 @ 09:34 by Kylie Rojo CNM) History of depression Family History? Grandfather Myocardial infarction Diabetes ?? ? maternalFather Diabetes Social History? adopted:? No household members:? significant other and children housing:? house number of children:? 1 service:? No current occupational status:? unemployed current occupation:? [employer] current occupational exposures/hazards:? No pets and animals:? No history of recent travel:? No sexually active:? Yes Smoking Status:? Former smoker quit date: 08/23/22 alcohol intake:? never substance use type:? does not use well-balanced diet:? daily or most days caffeine:? Yes Type: coffee Number of servings: 2 eating out:? rarely or never during the past year weight has:? increased > 10 lbs what type of physical activity do you participate in:? walking frequency:? 1-2 times per week duration:? 15-30 minutes/day adwoa/zoroastrianism:? None seatbelt use:? always do you feel safe at home:? Yes additional social history:? BF Vidhya Flores (DELORES Melissa Ilir and Kuldeep) History ? ? ? 2 ? Elective abortions ? Hx Para ? ? ? 1 ? Spontaneous abortions ? Hx # Term Pregnancies ? Ectopic pregnancies ? Hx # Pregnancies ? Multiple births ? # of living children ? ? ? 1 Past Pregnancies Del. Date Name GA/Weeks Outcome Route Bth Weight Infant Gen Labor Lgth Anesthesia Del Locatn Provider FOB 10/25/19 Gabbie 40 live - full term ? Female ? epidural [facility] ? Delivery Date: 10/25/19? Last Updated by: Shahida Aj ? ? ? GDMA1 HPI NOB LMP 07/04/22,? JV to scan Details: NAVID HATFIELD is a 26 year old who presents for New OB visit. nausea has improved. increased vaginal discharge with mild odor. ultrasound demonstrated CRL c/w LMP at 10+2, however without HR on doppler. OB Visit NICOLE Calculator ? Estimated Delivery Date Method Current WG Current Estimate 04/10/23 LMP (Certain) 10w 3d Comments: HIV: Urine Culture: Sequential Screen: NIPT Screen: Estimated Due Date: 04/10/23 Menstrual History Last Menstrual Period: 07/04/22 Reported LMP: definite Normal amount/duration: No (Heavy for 2 days ) Frequency in days: 33-35 On hormonal BC at conception: No hCG+: 08/13/22 Antepartum Record Genetic Screening: Congenital Heart Defect: Other, Neural Tube Defect: Other, Hemoglobinopathy Or Carrier: Other, Cystic Fibrosis: Other, Chromosome Abnormality: Other, Matt-Sachs: Other, Hemophilia: Other, Intellectual Disability/Autism: Other, Recurrent Loss/Stillbirth: Other, Other Structural Defect: Other, Other Genetic Disease: Other and Maternal Metabolic Disorder: Other Infection History: Live with someone with TB or Exposed to TB: No, Patient or Partner has history of Genital Herpes: No, Rash or Viral illness since last mentrual period: Yes (rash 08/24/22 possible hand foot mouth child exposed.), Prior GBS-Infected child: No, History of STD: No, HIV Infection: No, History of Hepatitis: No, Recent travel outside of [place]: No, Concern for hepatitis exposure: No and Varicella immune: Yes (immune) Comments: Covid Vaccinated(Moderna) No Boosters Medical History Medical History: Positive: Diabetes (HX of gestational diabetes), Depression/ depression and Relevant family history (Maternal gRANDPA DIABETIC, FATHER DIABETIC, MOTHER PRE-DIABETIC) and Negative: Hypertension, Heart disease, Auto-immune disorder, Kidney disease/UTI, Neurologic/epilepsy, Psychiatric, Hepatitis/liver disease, Varicosities/phlebitis, Thyroid dysfunction, Trauma/domestic violence, History of blood transfusions, D (Rh) Sensitized, Pulmonary (e.g.,TB,Asthma), Seasonal allergies, Drug/latex allergies/reactions, Breast, [employer] surgery, Operations/hospitalizations, Anesthetic complications, History of abnormal pap, Uterine anomaly/janeth, Infertility, Anti-retroviral treatment and Other ACOG First Trimester First Trimester: Desire for , Alcohol, Tobacco Cessation, Illicit/Recreational Drug/Substance Use, Intimate Partner Violence, Barriers to care, Unstable Housing, Communication Barriers, Environmental/Work Hazards, Anticipated Course of Care, Toxoplasmosis Precations, Use of Any medications, Sexual activity, Exercise, Dental Care, Sauna/Hot tub use, Seat Belt use, Childbirth classes/Hospital facilities, Travel, Indications for Ultrasound and Screening for Aneuploidy; Discussed Second Trimester Second Trimester: Signs and Symptoms of Labor, Selecting a care provider, Reproductive Life Planning & Contreception, Care Planning, Tobacco Cessation, Depression/Anxiety and Intimate Partner Violence Third Trimester Third Trimester: Pain Management Plans, Labor support person(s), Immediate Larc, Movement Monitoring and Feeding No ; Discussed Trial of Labor after Counseling and Discussed Circumcision preference ROS Const Denies anorexia, Denies body aches, Denies chills, Denies excessive sweating, Denies fatigue, Denies headache(s) and Denies lethargy ENT Denies headache(s) GI Denies abdominal pain, Denies coffee ground emesis, Reports constipation, Denies cramping and Reports nausea Denies sexual dysfunction, Reports urinary frequency, Denies urinary incontinence, Denies urinary hesitancy, Denies urinary urgency, Denies vaginal discharge, Denies vaginal dryness, Denies vaginal odor and Denies vaginal pruritus Skin/Breast Details: breast discomfort Neuro No headache(s) Endo Denies cold intolerance, Denies deepening of the voice, Denies excessive sweating, Denies fatigue, Denies flushing, Denies heat intolerance, Denies polydipsia and Denies polyphagia Exam Const General: cooperative, healthy appearing, comfortable and no acute distress Neck Neck: normal visual inspection, full ROM and no lymphadenopathy Thyroid: thyroid normal Chest Chest palpation & inspection: normal inspection of the chest Breast inspection: normal inspection of the breasts and normal inspection of the axillae Resp Effort & Inspection: normal respiratory effort, able to speak in complete sentences and symmetric chest movement GI Inspection: normal to inspection Palpation: soft External Female Exam: normal external appearance and normal appearance of the urethra Urethra: normal appearance of the urethra Speculum Exam - Vagina: normal appearance of the vagina Speculum Exam - Cervix: normal appearance of the cervix Bimanual Exam- Vagina & Uterus: uterine size normal (consistent with dates of ) OB/External & Speculum: no bleeding Skin General: rashes and/or lesions noted Neuro General: patient alert, patient awake and patient oriented x3 Psych Appearance: grossly normal and well kempt Coding Level of Care Code Off vis,new,level 4 Diagnoses Rash? R21 Supervision of high risk , antepartum? O09.90 ? Z3A.09 ? ? ? Weeks of gestation: 9 weeks Missed with demise before 20 completed weeks of gestation? O02.1 Vaginal discharge? N89.8 Assessment and Plan Assessment and Plan (1) Rash: ?Status:?Acute ?Comment: Pt seen in urgent care stated not hand foot mouth disease, but child exposed at daycare. (2) Supervision of high risk , antepartum: ?Status:?Acute ?Comment: , NICOLE 04/10/23, DELORES Dillon([facility]) (3) : ?Status:?Acute ?Qualifiers: ?Weeks of gestation:?9 weeks? Qualified Code(s):?Z3A.09 - 9 weeks gestation of ?Comment: discussed genetic and carrier testing (4) Missed with demise before 20 completed weeks of gestation: ?Status:?Acute ?Comment: D&C today, will ask for ultrasound to be in room After discussing the patient's diagnosis and treatment plan options, patient wishes to proceed with surgical management. I have discussed with the patient the risks, benefits, and alternatives of the procedure which include but are not limited to risks of anesthesia, bleeding, infection, possible damage to bowel, bladder, or surrounding vasculature which could lead to additional surgery to evaluate any complications. Patient agrees to procedure and wishes to proceed. ACOG/uptodate references given for additional information regarding procedure. -NPO -consult obtained -to start of OCP post procedure -discussed risk and benefits of tubal ligation, pt desires BTL- title 19 discussed. (5) Vaginal discharge: ?Status:?Acute ?Comment: BV rapid completed and noted to be positive- will need home flagyl after surgery.
== END 2022-09-15 17:54 | disposition home or self-care (01) ==
LOC: SDC 13:43 → AC 13:45
PROVIDERS: PCP Student in an Organized Health Care Education/Training Program; Referring Provider Obstetrics & Gynecology; Visit Provider Obstetrics & Gynecology
PROC: (CPT 59820; principal; 2022-09-15 15:45)
DX: O02.1 Missed abortion (principal); Z87.891 Personal history of nicotine dependence; Z86.32 Personal history of gestational diabetes; Z86.59 Personal history of other mental and behavioral disorders
CPT/HCPCS: 59820; 01965; 85027; 86850; 86900; 86901; 87491; 87591; 88175; 88305; J7120; G0145; J2405

== ENCOUNTER → 2022-09-15 | Outpatient (CLI) | payer MEDICAID, SELFPAY ==
[2022-09-18 00:07] LABS: Chlamydia By Nucleic Acid AMP Negative (Negative)
[2022-09-18 12:26] LABS: Gonococcus By Nucleic Acid AMP Negative (Negative)
[2022-09-21 11:34] LABS: HPV Reflexed? NOT INDICATED
== END | disposition home or self-care (01) ==
PROVIDERS: PCP Student in an Organized Health Care Education/Training Program; Referring Provider Registered Nurse; Visit Provider Obstetrics & Gynecology
DX: Z34.90 Encounter for supervision of normal pregnancy, unspecified, unspecified trimester (principal)
CPT/HCPCS: 87491; 87591; G0145; 88175

== ENCOUNTER → 2022-09-21 | Outpatient (CLI) | payer MEDICAID, SELFPAY ==
--- NOTE | 2022-09-21 18:18 | US_ITS ---
EXAM: US PELVIS TRANSABDOMINAL AND TRANSVAGINAL, COMPLETE CLINICAL INDICATION: pelvic pain/post D C after miscarriage-- STAT TECHNIQUE: Transabdominal and transvaginal pelvic ultrasound was performed with grayscale and color Doppler imaging. Transvaginal imaging was used for better evaluation of the endometrium and adnexa. This report was created using Vuzit report generation technology. COMPARISON: None. FINDINGS: UTERUS/CERVIX: The uterus measures 13.5 x 5.3 x 8.4 cm. The endometrium measures 4.2 cm. Anteverted. There is no uterine mass. RIGHT OVARY: The right ovary measures 2.6 x 1.8 x 1.8 cm. Blood flow is present in the right ovary. LEFT OVARY: The left ovary measures 2.4 x 1.6 x 2.0 cm. Blood flow is present in the left ovary. FREE FLUID: None. BLADDER: The bladder measures 8.5 x 6.3 x 9.3 cm for a volume of 261 mL. OTHER FINDINGS: The endometrium is of mixed echogenicity with no discrete intrauterine gestation. US/Pelvic (Non ) IMPRESSION: Marked thickening of the endometrial canal with mixed echogenic material possibly representing blood products. There is no increased blood flow identified. Electronically Signed: Craig Odom MD at 19:20 EST ,
== END | disposition home or self-care (01) ==
PROVIDERS: PCP Student in an Organized Health Care Education/Training Program; Visit Provider Obstetrics & Gynecology
DX: R93.89 Abnormal findings on diagnostic imaging of other specified body structures (principal); O02.1 Missed abortion; R10.2 Pelvic and perineal pain
CPT/HCPCS: 76830; 76856

== ENCOUNTER 2022-12-23 15:00 | Emergency (ER) | payer MEDICAID, SELFPAY ==
[2022-12-23 15:01] VITALS: BP 176/96; PULSE 111; RESP 16; TEMP 35.9; O2SAT 98; BMI 34.5
[2022-12-23 15:10] VITALS: PULSE 100; RESP 18; O2SAT 99
--- NOTE | 2022-12-23 15:10 | ED.VIS.DENTA ---
HPI History of Present Illness Chief Complaint: Dental Detail of Chief Complaint: Dental pain Informant: patient Narrative Narrative: Patient presents with dental pain that she had for 3 to 4 weeks. Patient saw dentist and is scheduled to have an extraction but not till March. Patient was post have antibiotics called in but did not have them called in. Patient denies any fevers. She denies any trauma. She is been taking ibuprofen and naproxen not get much pain relief. [facility] Medical History (Updated 12/23/22 @ 15:[address] Sabra Abebe, DO) History of depression Home Medications norgestimate 0.25 mg-ethinyl estradiol 35 mcg tablet (Sprintec (28)) 1 tab PO DAILY #84 tabs 09/15/22 [Rx Last Taken Unknown] doxycycline hyclate 100 mg capsule 100 mg PO BID #14 caps 09/29/22 [Rx Last Taken Unknown] clindamycin HCl 300 mg capsule (Cleocin HCl) 300 mg PO Q6H #40 CAPSULES 12/23/22 [Rx Last Taken Unknown] hydrocodone-acetaminophen 5-325mg 5mg-325mg 1 tab PO Q4H PRN PRN Pain 2 days #10 TABLETS 12/23/22 [Rx Last Taken Unknown] Allergy/AdvReac Type Severity Reaction Status Date / Time bee venom protein (honey bee) Allergy Rash Verified 12/23/22 15:03 Family History Grandfather Myocardial infarction Diabetes maternal Father Diabetes Surgical History (Updated 09/29/22 @ 15:17 by Jessy Douglas) S/P dilation and curettage (~09/15/22) Social History adopted: No household members: significant other and children housing: house number of children: 1 current occupational status: unemployed current occupation: [employer] current occupational exposures/hazards: No pets and animals: No history of recent travel: No sexually active: Yes Smoking Status: Light Smoker (<10/day) alcohol intake: never substance use type: does not use well-balanced diet: daily or most days caffeine: Yes Type: coffee Number of servings: 2 eating out: rarely or never during the past year weight has: increased > 10 lbs what type of physical activity do you participate in: walking frequency: 1-2 times per week duration: 15-30 minutes/day adwoa/samaritan: None seatbelt use: always do you feel safe at home: Yes additional social history: CLARA Flores (Ilir Rolon and Kuldeep) ROS ROS ED Review of Systems ROS Unobtainable: other Constitutional Constitutional ED: Reports lethargy; Denies chills, fever(s), sweats or weight loss Eyes Eyes: Denies blurry vision, change in vision or diplopia ENT ENT ED: Reports other Details: Dental pain ; Denies rhinorrhea or sore throat Cardiovascular Cardiovascular: Denies chest pain, orthopnea or racing heartbeat Respiratory/Chest Respiratory/Chest: Denies cough, dyspnea, dyspnea on exertion, orthopnea or sputum Gastrointestinal Gastrointestinal: Denies abdominal pain, diarrhea, nausea or vomiting Genitourinary Genitourinary ED: Denies dysuria, hematuria or urinary frequency Musculoskeletal Musculoskeletal: Denies arthralgias, back pain, myalgias or neck pain Integumentary Denies abscess, Abrasions or rash Neurologic Neurologic: Denies headache(s) or weakness Psychiatric Psychiatric: Denies anxiety, depression or suicidal thoughts Endocrine Endocrinology: Denies polydipsia, polyphagia or polyuria Hematologic/Lymphatic Hematologic/Lymphatic: Denies easy bleeding, easy bruising or lymphadenopathy Allergic/Immunologic Allergic/Immunologic ED: Denies mouth swelling, tongue swelling or urticaria EXAM Physical Exam Const Vital Signs: 12/23/22 15:01 Temperature 96.7 F L Temperature Source Temporal Pulse Rate 111 H Respiratory Rate 16 Blood Pressure 176/96 H Blood Pressure Mean 122 Pulse Ox 98 Oxygen Delivery Method Room Air Positive well nourished and well developed General Appearance ED: well developed and NAD HEENT Reports TM's clear and moist mucous membranes HEENT Narrative: Dentition-patient has tenderness to palpation over the right lower second molar. There is a filling in the molar. There is no evidence of dental fracture. Minimal gingival erythema. No abscess. No facial or erythema or cellulitis. normocephalic and atraumatic; Negative for trauma or tenderness Tympanic Membrane ED: Yes TM's clear Eyes PERRL and EOMs intact bilaterally General Eye ED: Negative for pale conjunctiva or scleral icterus Neck no lymphadenopathy, supple and no JVD General: Negative for tenderness Chest Wall inspection of chest normal and palpation of chest normal Chest: Negative for tenderness Resp normal respiratory effort and clear to auscultation bilaterally Effort and Inspection: Negative for respiratory distress or pain with movement Auscultation: Negative for rhonchi, wheezes or diminished lung sounds Cardio regular rate, regular rhythm, S1 normal heart sound, S2 normal heart sound and no murmurs Peripheral Pulses: pulses 2+ throughout GI normal to inspection, nondistended, normoactive bowel sounds, soft to palpation, non-tender, non-distended and no masses Back/Spine no CVA tenderness and no thoracic nor lumbar tenderness Extremity normal to inspection General Extremety ED: Negative for edema General Extremity: Negative for edema Neuro oriented x3, CN's II-XII intact bilaterally, no sensory deficits noted and gait normal Sensorium / Orientation: awake, alert, oriented to person, oriented to place and oriented to time Motor Exam: strength 5/5 throughout and strength abnormal Psych mental status grossly normal Skin no rashes or lesions noted and no wounds MDM MDM MDM Narrative Medical decision making narrative: Patient will be started on clindamycin and given a few [place] for pain. Patient advised to follow-up with her dentist. Discharge Plan Triage Chief Complaint: Dental ED Provider: Sabra Abebe Dx/Rx/DC Orders Clinical Impression: Pain, dental Instructions: ED Dental Pain Prescriptions: New clindamycin HCl [Cleocin HCl] 300 mg capsule 300 mg PO Q6H Qty: 40 0RF hydrocodone-acetaminophen [hydrocodone-acetaminophen] 5-325 mg tablet 1 tab PO Q4H PRN PRN (Reason: Pain) 2 Days Qty: 10 0RF No Action norgestimate-ethinyl estradiol [Sprintec (28)] 0.25-35 mg-mcg tablet 1 tab PO DAILY Qty: 84 0RF doxycycline hyclate 100 mg capsule 100 mg PO BID Qty: 14 0RF Primary Care Provider: Miguelangel Levi Referrals: Miguelangel Levi [Primary Care Provider] - Activity Restrictions/Additional Instructions: See your dentist at the earliest possible time to have your tooth extracted. Disposition Disposition: Home, Self Care
[2022-12-23] MEDS: Clindamycin HCl 150 MG Capsule 300 MG PO (15:25)
== END 2022-12-23 15:29 | disposition home or self-care (01) ==
LOC: ED 15:23
PROVIDERS: Emergency Provider Emergency Medicine; PCP Student in an Organized Health Care Education/Training Program; Visit Provider Emergency Medicine
DX: K08.89 Other specified disorders of teeth and supporting structures (principal); F17.200 Nicotine dependence, unspecified, uncomplicated; Z79.3 Long term (current) use of hormonal contraceptives
CPT/HCPCS: 99283

== ENCOUNTER 2023-10-20 07:10 | Emergency (ER) | payer MEDICAID, SELFPAY ==
[2023-10-20 07:12] VITALS: BP 145/90; PULSE 103; RESP 16; TEMP 36.8; O2SAT 100; BMI 36.1
--- NOTE | 2023-10-20 07:14 | EX.ED.UPPERE ---
HPI History of Present Illness HPI Narrative: Patient presents for suture removal. Patient states she had 3 sutures placed in a laceration in her left fifth finger 9 days ago. Patient states this was done in the emergency department at [facility]. Patient denies any redness or swelling. Patient denies any paresthesias or weakness. Patient denies any fevers or chills. Patient denies any paresthesias or weakness. Patient states the wound has been healing well. Chief Complaint: Upper Extremity Injury Informant: patient Onset/Context/Timing Onset: Days (9) Timing: Continuous Quality of Pain: - (None) Location: Left fifth finger Worsened by: Nothing Relieved by: Nothing Associated Symptoms Associated Symptoms: Negative for Parasthesia, Weakness or Loss of Funtion Narrative Tetanus Immunization: <5 years PFSH PFS Medical History History of depression Home Medications norgestimate 0.25 mg-ethinyl estradiol 35 mcg tablet (Sprintec (28)) 1 tab PO DAILY #84 tabs 09/15/22 [Rx Last Taken Unknown] doxycycline hyclate 100 mg capsule 100 mg PO BID #14 caps 09/29/22 [Rx Last Taken Unknown] clindamycin HCl 300 mg capsule (Cleocin HCl) 300 mg PO Q6H #40 CAPSULES 12/23/22 [Rx Last Taken Unknown] hydrocodone-acetaminophen 5-325mg 5mg-325mg 1 tab PO Q4H PRN PRN Pain 2 days #10 TABLETS 12/23/22 [Rx Last Taken Unknown] Allergy/AdvReac Type Severity Reaction Status Date / Time bee venom protein (honey bee) Allergy Rash Verified 10/20/23 07:12 Family History Grandfather Myocardial infarction Diabetes maternal Father Diabetes Surgical History S/P dilation and curettage (~09/15/22) Social History adopted: No household members: significant other and children housing: house number of children: 1 current occupational status: unemployed current occupation: [employer] current occupational exposures/hazards: No pets and animals: No history of recent travel: No sexually active: Yes Smoking Status: Light Smoker (<10/day) alcohol intake: never substance use type: does not use well-balanced diet: daily or most days caffeine: Yes Type: coffee Number of servings: 2 eating out: rarely or never during the past year weight has: increased > 10 lbs what type of physical activity do you participate in: walking frequency: 1-2 times per week duration: 15-30 minutes/day adwoa/pentecostalism: None seatbelt use: always do you feel safe at home: Yes additional social history: CLARA Flores (Ilir Rolon and Kuldeep) ROS ROS ED Constitutional Constitutional ED: Denies chills or fever(s) Eyes Eyes: Denies blurry vision or change in vision ENT ENT ED: Denies rhinorrhea or sore throat Cardiovascular Cardiovascular: Denies chest pain or palpitations Respiratory/Chest Respiratory/Chest: Denies cough or dyspnea Gastrointestinal Gastrointestinal: Denies nausea or vomiting Genitourinary Genitourinary ED: Denies dysuria or hematuria Musculoskeletal Musculoskeletal: Denies back pain or neck pain Integumentary Denies abscess or rash Neurologic Neurologic: Denies headache(s) or weakness Allergic/Immunologic Allergic/Immunologic ED: Denies mouth swelling or urticaria EXAM Physical Exam Const Vital Signs: 10/20/23 07:12 Temperature 98.2 F Temperature Source Temporal Pulse Rate 103 H Respiratory Rate 16 Blood Pressure 145/90 H Blood Pressure Mean 108 Pulse Ox 100 Oxygen Delivery Method Room Air Positive well nourished, well developed and obese General Appearance ED: well developed and NAD Nutritional Appearance: obese HEENT Reports moist mucous membranes Neck full ROM and supple Extremity Extremity Narrative: There is a healing laceration over the ulnar aspect of the proximal phalanx of the left fifth finger. There are [address] There is no erythema or warmth. There is no discharge or drainage noted. Sensation was intact to light touch in all digits. Capillary refill was less than 2 seconds in all digits. There is full range of motion of the MP, PIP, and DIP joints. Neuro oriented x3, CN's II-XII intact bilaterally, moves all extremities, no focal motor deficits and no sensory deficits noted Sensorium / Orientation: alert Motor Exam: strength 5/5 throughout Psych mental status grossly normal MDM MDM MDM Narrative Medical decision making narrative: The wound was cleaned. 3 sutures were removed without difficulty. Patient tolerated the procedure well. Bacitracin dressing was applied. Patient was instructed to follow-up with her primary care physician as needed. Patient understood and was agreeable with the plan. All questions were answered. Discharge Plan Triage Chief Complaint: Upper Extremity Injury Other Complaint: Wound ED Provider: Manny Gonzalez Dx/Rx/DC Orders Clinical Impression: Healing laceration, Encounter for removal of sutures Instructions: ED Laceration Minimize Scars, Sutr or Stap Removal Prescriptions: No Action norgestimate-ethinyl estradiol [Sprintec (28)] 0.25-35 mg-mcg tablet 1 tab PO DAILY Qty: 84 0RF doxycycline hyclate 100 mg capsule 100 mg PO BID Qty: 14 0RF clindamycin HCl [Cleocin HCl] 300 mg capsule 300 mg PO Q6H Qty: 40 0RF hydrocodone-acetaminophen [hydrocodone-acetaminophen] 5-325 mg tablet 1 tab PO Q4H PRN PRN (Reason: Pain) 2 Days Qty: 10 0RF Primary Care Provider: Miguelangel Levi Referrals: Miguelangel Levi DO [Primary Care Provider] - As Needed Disposition Disposition: Home, Self Care
--- OUTSIDE RECORDS SUMMARY | 2023-10-20 07:42 | XMS RPT_ITS | CCD ---
Author Name Unknown Address [address] [place] [address] Organization [facility] Care Team Providers Care Solid Waste Collector Name Role Phone Larisa Rodriguez Unavailable Unavailable Larisa Rodriguez Unavailable Unavailable Miguelangel Harkins DO Primary Care Provider Miguelangel Harkins DO Primary Care Provider Miguelangel Harkins DO Primary Care Provider Miguelangel Harkins DO Primary Care Provider IESHA NEWELL Attending Unavailable MIGUELANGEL HARKINS Primary Care Unavailable SELF Referring Unavailable LORI OZUNA Referring Unavailable MIGUELANGEL HARKINS Primary Care Unavailable MIGUELANGEL HARKINS Primary Care Unavailable MIGUELANGEL HARKINS Referring Unavailable MIGUELANGEL HARKINS Primary Care Unavailable MIGUELANGEL HARKINS Attending Unavailable MIGUELANGEL HARKINS Primary Care Unavailable MIGUELANGEL HARKINS Attending Unavailable MIGUELANGEL HARKINS Primary Care Unavailable CHERELLE GARCIA Primary Care Provider MD GARCIA RUDD Emergency Provider UNKNOWN, PROVIDER Primary Care Unavailable GARCIA RUDD Attending Unavailable Allergies Allergy Classification Reported Allergen(s) Allergy Type Date of Onset Reaction(s) Facility (11 sources) Bee Sting; Translations: [BEE STING] Allergy to substance 02-07-2013 Hives [facility] Work Phone: Medications Current Medications Medication Drug Class(es) Dates Sig (Normalized) Sig (Original) Folic Acid (8 sources) End: 02-15-2023 FOLIC ACID ORAL Take by mouth. 0 02/15/2023 Discontinued (Discontinued by Patient) Completed/Discontinued Medications Medication Drug Class(es) Dates Sig (Normalized) Sig (Original) acetaminophen 325 mg / oxyCODONE hydrochloride 5 mg oral tablet (1 source) Opioid Agonist Start: 12-28-2019 take 1 tablet by mouth three times daily as needed for pain oxyCODONE-Acetami nophen 5-325 MG Oral Tablet 1 po TID prn thumb pain Quantity: 15 Refills: 0 Michael Larisa MEEHAN Start : 28-Dec-2019 Active Problems Active Problems Problem Classification Problem Date Documented Da te Episodic/Chronic Anxiety disorders (6 sources) Mixed anxiety and depressive disorder; Translations: [Anxiety disorder, unspecified] Chronic Diabetes mellitus without complication (2 sources) Hyperglycemia; Translations: [Hyperglycemia, unspecified] Onset: 07-05-2023 07-05-2023 Episodic Diabetes or abnormal glucose tolerance complicating ; childbirth; or the puerperium (1 source) Personal history of gestational diabetes; Translations: [History of gestational diabetes mellitus (GDM)] Episodic Mood disorders (18 sources) Major depressive disorder; Translations: [Major depressive disorder, single episode, unspecified] Onset: 02-07-2013 Chronic Nutritional deficiencies (10 sources) Vitamin D deficiency; Translations: [Vitamin D deficiency, unspecified] Onset: 02-14-2013 02-14-2013 Chronic Open wounds of head; neck; and trunk (1 source) Laceration - injury; Translations: [Laceration] 10-11-2023 Episodic Other connective tissue disease (1 source) Tendinitis of hand; Translations: [Thumb tendonitis] Episodic Other nutritional; endocrine; and metabolic disorders (4 sources) Obese class II; Translations: [Obesity, unspecified] Onset: 02-15-2023 Chronic Other nutritional; endocrine; and metabolic disorders (1 source) Obesity, unspecified; Translations: [Obesity, Class II, BMI 35-39.9] Onset: 02-15-2023 Chronic Other screening for suspected conditions (not mental disorders or infectious disease) (3 sources) Raised TSH level; Translations: [Other specified abnormal findings of blood chemistry] Onset: 07-05-2023 Episodic Other skin disorders (1 source) Eruption; Translations: [Rash and other nonspecific skin eruption] Episodic Other upper respiratory infections (1 source) Sore throat symptom; Translations: [Acute pharyngitis, unspecified] Episodic Past or Other Problems Problem Classification Problem Date Documented Date Episodic/Chronic Contraceptive and procreative management (11 sources) Patient encounter status; Translations: [Encounter for contraceptive management, unspecified] Onset: 02-07-2013 02-07-2013 Episodic Malaise and fatigue (13 sources) Fatigue; Translations: [Other fatigue] Onset: 02-07-2013 Episodic Other nutritional; endocrine; and metabolic disorders (10 sources) Body mass index 25-29 - overweight; Translations: [Overweight] Onset: 02-07-2013 02-07-2013 Episodic Other skin disorders (1 source) Rash and other nonspecific skin eruption; Translations: [Rash of hand] Onset: 08-26-2022 Episodic Residual codes; unclassified (10 sources) Tobacco use and exposure - finding; Translations: [Tobacco use] Onset: 02-07-2013 02-07-2013 Episodic Results Test Name Value Interpretation Reference Range Facil ity Vital Signs Date Time Vital Sign Value Performing Clinician Facility 10-11-2023 13:55-0500 Body height 170.18 cm CHERELLE SAMARA NERIRETT Work Phone: [facility] 10-11-2023 13:55-0500 Body temperature 98.2 [degF] MEDICAL SOCIAL WORKER SAMARA NERIRETT Work Phone: [facility] 10-11-2023 13:55-0500 Body weight 81.65 kg CHERELLE SAMARA NERIRETT Work Phone: [facility] 10-11-2023 13:55-0500 Diastolic blood pressure 89 mm[Hg] CHERELLE SAMARA NERIRETT Work Phone: [facility] 10-11-2023 13:55-0500 Heart rate 90 /min CHERELLE SAMARA NERIRETT Work Phone: [facility] 10-11-2023 13:55-0500 Respiratory rate 18 /min CHERELLE SAMARA RADHA Work Phone: [facility] 10-11-2023 13:55-0500 SaO2% (BldA) [Mass fraction] 99 % CHERELLE SAMARA GARCIA Work Phone: [facility] 10-11-2023 13:55-0500 Systolic blood pressure 134 mm[Hg] MEDICAL SOCIAL WORKER SAMARA GARCIA Work Phone: [facility] 02-15-2023 08:04-0400 Body weight 97.8 kg Iesha Podlogar MEDICAL SOCIAL WORKER.GRAPHIC PRE PRESS 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 Work Phone: [facility] 02-15-2023 08:04-0400 Diastolic blood pressure 84 mm[Hg] Iesha Podlogar MEDICAL SOCIAL WORKER.GRAPHIC PRE PRESS 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 Work Phone: [facility] 02-15-2023 08:04-0400 Heart rate 81 /min Iesha Podlogar MEDICAL SOCIAL WORKER.GRAPHIC PRE PRESS 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 Work Phone: [facility] 02-15-2023 08:04-0400 Respiratory rate 16 /min Iesha Podlogar MEDICAL SOCIAL WORKER.GRAPHIC PRE PRESS 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 Work Phone: [facility] 02-15-2023 08:04-0400 SaO2% (BldA) [Mass fraction] 98 % Iesha Podlogar MEDICAL SOCIAL WORKER.GRAPHIC PRE PRESS 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 Work Phone: [facility] 02-15-2023 08:04-0400 Systolic blood pressure 122 mm[Hg] Iesha Podlogar MEDICAL SOCIAL WORKER.GRAPHIC PRE PRESS 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 Work Phone: [facility] 08-26-2022 16:16-0500 Body temperature 99.19 [degF] Lori Ozuna MEDICAL SOCIAL WORKER.GRAPHIC PRE PRESS 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 Work Phone: [facility] 08-26-2022 16:16-0500 Body weight 95.89 kg Lori Ozuna MEDICAL SOCIAL WORKER.GRAPHIC PRE PRESS 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 Work Phone: [facility] 08-26-2022 16:16-0500 Diastolic blood pressure 72 mm[Hg] Lori Ozuna MEDICAL SOCIAL WORKER.GRAPHIC PRE PRESS 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 Work Phone: [facility] 08-26-2022 16:16-0500 Heart rate 109 /min Lori Ozuna MEDICAL SOCIAL WORKER.GRAPHIC PRE PRESS 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 Work Phone: [facility] 01-05-2023 16:16-0500 Respiratory rate 18 /min Lori Ozuna APRN.GRAPHIC PRE PRESS 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 Work Phone: [facility] 08-26-2022 16:16-0500 SaO2% (BldA) [Mass fraction] 98 % Lori Ozuna APRN.GRAPHIC PRE PRESS 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 Work Phone: [facility] 08-26-2022 16:16-0500 Systolic blood pressure 122 mm[Hg] Lori Ozuna APRN.GRAPHIC PRE PRESS 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 Work Phone: [facility] 12-28-2019 11:35-0400 BMI (Body Mass Index) 31.34 kg/m2 [facility] Work Phone: 12-28-2019 11:35-0400 Body weight 86.75 kg [facility] Work Phone: 12-28-2019 11:35-0400 BP Diastolic 72 mm[Hg] [facility] Work Phone: Encounters Encounter Date Encounter Type Care Provider Facility Start: 10-11-2023 End: 10-11-2023 Emergency department patient visit PROVIDER UNKNOWN Facility: Start: 10-11-2023 End: 10-11-2023 Emergency department patient visit CHERELLE SAMARA NERIRETT Work Phone: [facility] Start: 07-05-2023 End: 07-06-2023 ambulatory Miguelangel Harkins DO Work Phone: [facility] [place] Procedures Date Procedure Procedure Detail Performing Clinician Start: 08-26-2022 STREP A MOLECULAR (POC) Lori Ozuna APRN.GRAPHIC PRE PRESS 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 Work Phone: Start: 12-28-2019 Follow-up visit Plan of Treatment Date Care Activity Detail Author Start: 08-06-2029 Urine microalbumin profile [facility] Start: 09-15-2025 PAP TESTING PAP TESTING [facility] Start: 03-11-2024 PAP TESTING PAP TESTING [facility] Start: 07-05-2023 End: 10-04-2023 25-hydroxyvitamin D3 [Mass/volume] in Serum or Plasma [facility] Work Phone: Immunizations Immunization Date Immunization Notes Care Provider Quirino sin 10-25-2019 measles, mumps and rubella virus vaccine Miguelangel Harkins DO Work Phone: [facility] Work Phone: 08-06-2019 diphtheria, tetanus toxoids and acellular pertussis vaccine, unspecified formulation Miguelangel Harkins DO Work Phone: [facility] Work Phone: 08-06-2019 tetanus toxoid, redu keaton diphtheria toxoid, and acellular pertussis vaccine, adsorbed Miguelangel Harkins DO Work Phone: [facility] Work Phone: 06-09-2014 tetanus and diphther ia toxoids, adsorbed, preservative free, for adult use (2 Lf of tetanus toxoid and 2 Lf of diphtheria toxoid) Miguelangel Harkins DO Work Phone: [facility] Work Phone: 10-13-2009 human papilloma viru s vaccine, quadrivalent Miguelangel Harkins DO Work Phone: [facility] Work Phone: 10-13-2009 varicella virus vaccine Jord an Harkins DO Work Phone: [facility] Work Phone: 08-12-2009 human papilloma viru s vaccine, quadrivalent Miguelangel Harkins DO Work Phone: [facility] Work Phone: 08-12-2009 tetanus toxoid, redu keaton diphtheria toxoid, and acellular pertussis vaccine, adsorbed Miguelangel Harkins DO Work Phone: [facility] Work Phone: 06-11-2009 human papilloma viru s vaccine, quadrivalent Miguelangel Harkins DO Work Phone: [facility] Work Phone: 06-11-2009 meningococcal polysaccharide (groups A, C, Y and W-135) diphtheria toxoid conjugate vaccine (MCV4P) Miguelangel Harkins DO Work Phone: [facility] Work Phone: 04-15-2000 diphtheria, tetanus toxoids and acellular pertussis vaccine Miguelangel Harkins DO Work Phone: [facility] Work Phone: 04-15-2000 measles, mumps and rubella virus vaccine Miguelangel Harkins DO Work Phone: [facility] Work Phone: 04-15-2000 poliovirus vaccine, inactivated Miguelangel Harkins DO Work Phone: [facility] Work Phone: 04-15-2000 varicella virus vaccine Jord an Harkins DO Work Phone: [facility] Work Phone: 06-14-1997 diphtheria, tetanus toxoids and acellular pertussis vaccine Miguelangel Harkins DO Work Phone: [facility] 06-14-1997 haemophilus influenz ae type b vaccine, HbOC conjugate Miguelangel Harkins DO Work Phone: [facility] 06-14-1997 haemophilus influenz ae type b vaccine, PRP-T conjugate Miguelangel Harkins DO Work Phone: [facility] Work Phone: 04-03-1997 measles, mumps and rubella virus vaccine Miguelangel Harkins DO Work Phone: [facility] 10-25-1996 diphtheria, tetanus toxoids and acellular pertussis vaccine Miguelangel Harkins DO Work Phone: [facility] 10-25-1996 haemophilus influenz ae type b vaccine, HbOC conjugate Miguelangel Harkins DO Work Phone: [facility] 10-25-1996 haemophilus influenz ae type b vaccine, PRP-T conjugate Miguelangel Harkins DO Work Phone: [facility] Work Phone: 10-25-1996 poliovirus vaccine, inactivated Miguelangel Harkins DO Work Phone: [facility] Work Phone: 10-25-1996 trivalent poliovirus vaccine, live, oral Miguelangel Harkins DO Work Phone: [facility] 06-12-1996 diphtheria, tetanus toxoids and acellular pertussis vaccine Miguelangel Harkins DO Work Phone: [facility] Work Phone: 06-12-1996 haemophilus influenz ae type b vaccine, PRP-T conjugate Miguelangel Harkins DO Work Phone: [facility] Work Phone: 06-12-1996 hepatitis B vaccine, pediatric or pediatric/adolescent dosage Miguelangel Harkins DO Work Phone: [facility] Work Phone: 06-12-1996 poliovirus vaccine, inactivated Miguelangel Harkins DO Work Phone: [facility] Work Phone: 03-06-1996 diphtheria, tetanus toxoids and acellular pertussis vaccine Miguelangel Harkins DO Work Phone: [facility] Work Phone: 03-06-1996 DTaP-Haemophilus influenzae type b conjugate vaccine Miguelangel Harkins DO Work Phone: [facility] 03-06-1996 haemophilus influenz ae type b vaccine, PRP-T conjugate Miguelangel Harkins DO Work Phone: [facility] Work Phone: 03-06-1996 hepatitis B vaccine, pediatric or pediatric/adolescent dosage Miguelangel Harkins DO Work Phone: [facility] 03-06-1996 poliovirus vaccine, inactivated Miguelangel Harkins DO Work Phone: [facility] Work Phone: 03-06-1996 trivalent poliovirus vaccine, live, oral Miguelangel Harkins DO Work Phone: [facility] 1995 hepatitis B vaccine, pediatric or pediatric/adolescent dosage Miguelangel Harkins DO Work Phone: [facility] Payers Date Payer Category Payer Medicaid [id number] 2022 Medicaid [id number] 2022 Medicaid [id number] 2020 Unknown MMO MMO [employer] [id number] 2020-Present [phone] [address] [place] [address] PPO [id number] 2020 Unknown MMO MMO [employer] [id number] 2020-Present [phone] [address] [place] [address] PPO [id number] 2016 Medicaid [employer]ICA[employer] [id number] 2016-Present [phone] [address] [place] [address] Medicaid [id number] Unknown [id number] Social History Date Type Detail Facility Assertion Tobacco smoking consumption unknown (finding) [facility] Work Phone: Start: 01-20-2012 End: 08-26-2022 Tobacco smoking status NHIS Occasional tobacco smoker [facility] Start: 01-20-2012 End: 02-15-2023 Cigarettes smoked current (pack per day) - Reported 0.5 [facility] Start: 01-20-2012 End: 08-26-2022 Tobacco use and exposure Smokeless tobacco non-user [facility] Start: 09-09-2021 End: 02-15-2023 Alcohol intake Current drinker of alcohol (finding) [facility] Start: 05-26-2021 End: 02-15-2023 History SDOH Alcohol Frequency 1 [facility] Start: 05-26-2021 History SDOH Alcohol Std Drinks 98 [facility] Start: 11-18-2017 History SDOH Alcohol Comment rarely [facility] Start: 05-26-2021 End: 02-15-2023 History SDOH Social Connections Phone 5 [facility] Start: 05-26-2021 End: 02-15-2023 History SDOH Social Connections Membership 2 [facility] Start: 05-26-2021 History SDOH Social Connections Living 7 [facility] Start: 05-26-2021 End: 02-15-2023 History SDOH Physical Activity DPW 3 [facility] Start: 05-26-2021 End: 02-15-2023 History SDOH Physical Activity MPS 6 [facility] Start: 05-25-2021 Education 12 [facility] Start: 1995 Sex Assigned At Female [facility] History of tobacco use Cigarette Smoker C [facility] Work Phone: Start: 02-15-2023 History SDOH Social Connections Living 8 [facility] Start: 02-15-2023 End: 07-04-2023 Social connection and isolation panel [facility] Do you belong to any clubs or organizations such as anabaptist groups, unions, fraternal or athletic groups, or school groups? No [facility] Are you now , , , , never or living with a partner? Living with partner [facility] How often to you hav e a drink containing alcohol? Monthly or less [facility] How many standard dr inks containing alcohol do you have on a typical day? 3 or 4 [facility] How often do you hav e 6 or more drinks on 1 occasion? Never [facility] How hard is it for y ou to pay for the very basics like food, housing, medical care, and heating Not hard at all [facility] Do you feel stress - tense, restless, nervous, or anxious, or unable to sleep at night because your mind is troubled all the time - these days [OSQ] Very much [facility] (I/We) worried keith er (my/our) food would run out before (I/we) got money to buy more. Never true [facility] Start: 05-25-2021 Gender identity Identifies as female gender (finding) [facility] Start: 05-25-2021 Sexual orientation Heterosexual (finding) [facility] Start: 10-11-2023 Tobacco smoking status NHIS Never smoked tobacco (finding) [facility] Start: 10-11-2023 Never [facility] Start: 10-11-2023 No [facility] Functional Status Date Assessment Result Facility NEGATED: Highlighted row Functional performance Functional status health issues are not documented Disease [facility] Work Phone: Mental Status Date Assessment Result Facility 10-11-2023 Cognitive function Level Of Cons ciousness Awake;Alert;Appropriate [facility] Work Phone: NEGATED: Highlighted row Cognitive function [Interpretation] Cognitive status health issues are not documented Disease [facility] Work Phone: Clinical Notes 11-27-2021 to 07-05-2023 Miguelangel Harkins, - 07/05/2023 11:44 AM ESTTelephone Encounter - Alex Rubin APRN.CNP - 06/20/2023 3:48 PM EDTTelephone Encounter - Tawnya Elam LPN - 06/20/2023 2:33 PM EDT Note Date & Type Note Facility 07-05-2023 Note HNO ID: [id number] Author: Miguelangel Harkins DO Service: ? Author Type: Physician Type: Progress Notes Filed: 07/05/2023 1:59 PM Note Text: Has been struggling with her anxiety recently. Has been taking the increased dose of the Lamictal at 50 mg at bedtime. In lieu of an in person visit due to coronavirus COVID 19 pandemic concerns, a virtual visit was performed with patient. Patient is aware that I am not fully able to assess symptoms and do a full physical exam including vital signs in office at this time. Patient consents to the visit. VIRTUAL VISIT PROGRESS NOTE This is a virtual visit using [employer] Zoom Video Visit. It required patient-provider interaction for the medical decision making as documented below. I have communicated my name and active licensure. The patient's identity and physical location were verified at the time of this visit. Either the patient or their legal agency sales representative has been informed of the risks and benefits of -- and alternatives to -- treatment through a remote evaluation and consents to proceed with the evaluation remotely. Nelli Gauthier is a 27 year old female seen for follow up mood seen for virtual visit on 11/27/21 Elevated TSH, diagnosed in Fall 2020, hasn't been on thyroid hormone supplements in the past, willing to have labs rechecked. Does struggle with fatigue and weight gain symptoms. maternal grandmother with hypothyroidism Depression symptoms, long standing, has been off her Prozac medication for a few years since her previous boyfriend didn't think she should be on this medication, although she voices that it was very helpful for her. Also struggles with anxiety symptoms. 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 Has trouble falling asleep and staying asleep at times. Also weight gain and fatigue concerns. Also admits that she has the tendency to overspend- maternal grandmother is on [place]. No SI or HI She was restarted on her Prozac At virtual follow up appt on 12/30/21 Depression, anxiety/panic attack symptoms, feels the prozac 20 mg a day that she is taking right now are helping but still struggling with feeling anxiety/panic symptoms at times, mostly when she is overwhelmed feeling. Has a very busy life/schedule with working and her 2 year old daughter. No SI or HI concerns. Asking for labs to be reviewed with her as well from November blood draw Her dose of prozac was increased to 40 mg a day and ativan was added prn for panic attack symptoms only. At follow up Mar 2022 Mood, still struggling at times with feeling anxiety and occasional manic symptoms as well, never has been on a mood stabilizer in the past. Is taking her 40 mg of Prozac as prescribed and feels this does help the anxiety but not the racing thoughts/mood concerns. Denies any SI or HI. Is working 3rd shift at least 48 hours a week. Does have a lot of stressors. Has been having some b/l arm tingling and pain, has seen Orthopedics with Dr Taylor and had EMG/NCT which was normal, cervical spine xray which was normal. Now scheduled to have MRI cervical spine next and potential visit with neurologist if this is normal to determine cause of symptoms. Does feel may be related to the elbow since placing pressure down on this area exacerbates the symptoms in her forearms/hands. At last OFFICE VISIT 05/2023 She has had a lot of stressors this last year with her father of her children trying to commit suicide with gun shot wound to his head/neck area and he is now homeless living in [facility]. She has changed jobs since then from [employer] to [employer] which she enjoys but struggles financially to pay her bills. Feels that the prozac and seroquel medications are helping but feels her dose needs to be increased. Struggling with anxiety and irritability at times and agitation and feeling on edge as well as some depression. No SI or HI. Just a lot of stressors for her to manage. Use of ativan as needed for panic symptoms Currently Anxiety, overwhelmed feeling, feels that it has been improving with her increased dose of prozac and lamictal but still finding herself needing to take the ativan 1-2 times a day for panic symptoms. Denies any SI or HI or depressed mood. Feels she still has a lot of overwhelming stressors in her life with raising her kids and trying to cope with care giving to them and paying her bills/working. She is interested in increased dosing if able. She isn't wanting to see Psychiatry yet Has had weight gain and fatigue. Willing to have labs obtained. Hx of abnormal thyroid function labs- hasn't recently had rechecked. HISTORY REVIEWED (electronic chart updated): PAST MEDICAL HISTORY Diagnosis Date Depression Vitamin D deficiency PAST SURGICAL HISTORY Procedure Laterality Date NONE FAMILY HISTORY Problem Relation Age of Onset Uterine Fibroids (more content not included)... [facility] 07-05-2023 History of Presen t illness Narrative Has been struggling with her anxiety recently. Has been taking the increased dose of the Lamictal at 50 mg at bedtime. In lieu of an in person visit due to coronavirus COVID 19 pandemic concerns, a virtual visit was performed with patient. Patient is aware that I am not fully able to assess symptoms and do a full physical exam including vital signs in office at this time. Patient consents to the visit. VIRTUAL VISIT PROGRESS NOTE This is a virtual visit using [employer] Video Visit. It required patient-provider interaction for the medical decision making as documented below. I have communicated my name and active licensure. The patient's identity and physical location were verified at the time of this visit. Either the patient or their legal agency sales representative has been informed of the risks and benefits of -- and alternatives to -- treatment through a remote evaluation and consents to proceed with the evaluation remotely. Nelli Gauthier is a 27 year old female seen for follow up mood seen for virtual visit on 11/27/21 Elevated TSH, diagnosed in Fall 2020, hasn't been on thyroid hormone supplements in the past, willing to have labs rechecked. Does struggle with fatigue and weight gain symptoms. maternal grandmother with hypothyroidism Depression symptoms, long standing, has been off her Prozac medication for a few years since her previous boyfriend didn't think she should be on this medication, although she voices that it was very helpful for her. Also struggles with anxiety symptoms. 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 Has trouble falling asleep and staying asleep at times. Also weight gain and fatigue concerns. Also admits that she has the tendency to overspend- maternal grandmother is on [place]. No SI or HI She was restarted on her Prozac At virtual follow up appt on 12/30/21 Depression, anxiety/panic attack symptoms, feels the prozac 20 mg a day that she is taking right now are helping but still struggling with feeling anxiety/panic symptoms at times, mostly when she is overwhelmed feeling. Has a very busy life/schedule with working and her 2 year old daughter. No SI or HI concerns. Asking for labs to be reviewed with her as well from November blood draw Her dose of prozac was increased to 40 mg a day and ativan was added prn for panic attack symptoms only. At follow up Mar 2022 Mood, still struggling at times with feeling anxiety and occasional manic symptoms as well, never has been on a mood stabilizer in the past. Is taking her 40 mg of Prozac as prescribed and feels this does help the anxiety but not the racing thoughts/mood concerns. Denies any SI or HI. Is working 3rd shift at least 48 hours a week. Does have a lot of stressors. Has been having some b/l arm tingling and pain, has seen Orthopedics with Dr Taylor and had EMG/NCT which was normal, cervical spine xray which was normal. Now scheduled to have MRI cervical spine next and potential visit with neurologist if this is normal to determine cause of symptoms. Does feel may be related to the elbow since placing pressure down on this area exacerbates the symptoms in her forearms/hands. At last OFFICE VISIT 05/2023 She has had a lot of stressors this last year with her father of her children trying to commit suicide with gun shot wound to his head/neck area and he is now homeless living in [facility]. She has changed jobs since then from [employer] to [employer] which she enjoys but struggles financially to pay her bills. Feels that the prozac and seroquel medications are helping but feels her dose needs to be increased. Struggling with anxiety and irritability at times and agitation and feeling on edge as well as some depression. No SI or HI. Just a lot of stressors for her to manage. Use of ativan as needed for panic symptoms Currently Anxiety, overwhelmed feeling, feels that it has been improving with her increased dose of prozac and lamictal but still finding herself needing to take the ativan 1-2 times a day for panic symptoms. Denies any SI or HI or depressed mood. Feels she still has a lot of overwhelming stressors in her life with raising her kids and trying to cope with care giving to them and paying her bills/working. She is interested in increased dosing if able. She isn't wanting to see Psychiatry yet Has had weight gain and fatigue. Willing to have labs obtained. Hx of abnormal thyroid function labs- hasn't recently had rechecked. HISTORY REVIEWED (electronic chart updated): PAST MEDICAL HISTORY Diagnosis Date Depression Vitamin D deficiency PAST SURGICAL HISTORY Procedure Laterality Date NONE FAMILY HISTORY Problem Relation Age of Onset Uterine Fibroids Mother GERD Father Heart Maternal Grandfather Cancer Other Diabetes Other maternal family Social History Tobacco Use Smoking status: Some Days Packs/day: 0.50 Years: 4.00 Additional pack years: 0.00 Total pack years: 2.00 Types: Cigarettes Smokeless tobacco: Never Vaping Use Vaping Use: current everyday user Substances: Nicotine Substance Use Topics Alcohol use: Yes Comment: rarely Drug use: No Current Outpatient Medications Medication Sig LORazepam (ATIVAN) 0.5 mg Take 1 tablet by mouth two times a day as needed (panic attack symptoms) for up to 30 days. lamoTRIgine (LAMICTAL) 25 mg tablet Take 1 tablet in the AM and take 2 tablets in the PM FLUoxetine (PROZAC) 20 mg capsule Take 1 capsule by mouth once daily. Take with 40 mg capsule to total to 60 mg capsule FLUoxetine (PROZAC) 40 mg capsule Take 1 capsule by mouth once daily. No current facility-administered medications for this visit. ALLERGIES Allergen Reactions Bee Sting Hives REVIEW OF SYSTEMS: As noted in HPI PHYSICAL EXAMINATION: VIDEO EXAM: (if completed, performed via video enabled technology) GENERAL: alert and appropriate, in no distress, well-hydrated, well nourished, appears tired, and appears anxious ASSESSMENT: (R79.89) Elevated TSH (primary encounter diagnosis) (F41.0) Panic attack (F30.10) Manic behavior (HCC) (R73.9) Hyperglycemia (R53.83) Fatigue, unspecified type PLAN: Increase dose of lamictal to bid and increase dose of prozac. Continue to consider psychiatrist input if not improving. Concerns regarding her anxiety and coping skills. No SI or HI. Need for labs to be rechecked as well as her to consider therapy/counseling for coping strategies. Contracted for safety PDMP website checked and validated. All prescriptions have been APPROPRIATELY filled. No suspicious activity was identified. 07/05/2023 by Miguelangel Harkins DO There are no Patient Instructions on file for this visit. I spent a total of 35 minutes on the date of the service which included preparing to see the patient, [id number] patient care, completing clinical documentation, performing a medically appropriate examination, counseling and educating the patient/family/caregiver, and ordering medications, tests, or procedures Miguelangel Harkins DO documented in this encounter [facility] 06-20-2023 Miscellaneous Notes Formattin g of this note is different from the original. PDMP website checked and validated. All prescriptions have been APPROPRIATELY filled. No suspicious activity was identified. 06/20/2023 by Alex Rubin APRN.GRAPHIC PRE PRESS 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 The following approved medication requests have been transmitted electronically. Requested Prescriptions Signed Prescriptions Disp Refills LORazepam (ATIVAN) 0.5 mg 20 tablet 1 Sig: Take 1 tablet by mouth two times a day as needed (panic attack symptoms) for up to 30 days. Authorizing Provider: ALEX RUBIN APRN.GRAPHIC PRE PRESS 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 Dinorah--05/24/23 Nov--07/05/23 Last refill--05/24/23 20 with 1 refill Last labs--11/28/21 documented in this encounter [facility] 05-24-2023 Note HNO ID: [id number] Author: Miguelangel Harkins, DO Service: ? Author Type: Physician Type: Progress Notes Filed: 05/24/2023 9:13 AM Note Text: In lieu of an in person visit due to coronavirus COVID 19 pandemic concerns, a virtual visit was performed with patient. Patient is aware that I am not fully able to assess symptoms and do a full physical exam including vital signs in office at this time. Patient consents to the visit. VIRTUAL VISIT PROGRESS NOTE This is a virtual visit using [employer] Video Visit. It required patient-provider interaction for the medical decision making as documented below. I have communicated my name and active licensure. The patient's identity and physical location were verified at the time of this visit. Either the patient or their legal agency sales representative has been informed of the risks and benefits of -- and alternatives to -- treatment through a remote evaluation and consents to proceed with the evaluation remotely. Nelli Gauthier is a 27 year old female seen for follow up mood seen for virtual visit on 11/27/21 Elevated TSH, diagnosed in Fall 2020, hasn't been on thyroid hormone supplements in the past, willing to have labs rechecked. Does struggle with fatigue and weight gain symptoms. maternal grandmother with hypothyroidism Depression symptoms, long standing, has been off her Prozac medication for a few years since her previous boyfriend didn't think she should be on this medication, although she voices that it was very helpful for her. Also struggles with anxiety symptoms. 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 Has trouble falling asleep and staying asleep at times. Also weight gain and fatigue concerns. Also admits that she has the tendency to overspend- maternal grandmother is on [place]. No SI or HI She was restarted on her Prozac At virtual follow up appt on 12/30/21 Depression, anxiety/panic attack symptoms, feels the prozac 20 mg a day that she is taking right now are helping but still struggling with feeling anxiety/panic symptoms at times, mostly when she is overwhelmed feeling. Has a very busy life/schedule with working and her 2 year old daughter. No SI or HI concerns. Asking for labs to be reviewed with her as well from November blood draw Her dose of prozac was increased to 40 mg a day and ativan was added prn for panic attack symptoms only. At follow up Mar 2022 Mood, still struggling at times with feeling anxiety and occasional manic symptoms as well, never has been on a mood stabilizer in the past. Is taking her 40 mg of Prozac as prescribed and feels this does help the anxiety but not the racing thoughts/mood concerns. Denies any SI or HI. Is working 3rd shift at least 48 hours a week. Does have a lot of stressors. Has been having some b/l arm tingling and pain, has seen Orthopedics with Dr Taylor and had EMG/NCT which was normal, cervical spine xray which was normal. Now scheduled to have MRI cervical spine next and potential visit with neurologist if this is normal to determine cause of symptoms. Does feel may be related to the elbow since placing pressure down on this area exacerbates the symptoms in her forearms/hands. Currently She has had a lot of stressors this last year with her father of her children trying to commit suicide with gun shot wound to his head/neck area and he is now homeless living in [facility]. She has changed jobs since then from [employer] to [employer] which she enjoys but struggles financially to pay her bills. Feels that the prozac and seroquel medications are helping but feels her dose needs to be increased. Struggling with anxiety and irritability at times and agitation and feeling on edge as well as some depression. No SI or HI. Just a lot of stressors for her to manage. Use of ativan as needed for panic symptoms HISTORY REVIEWED (electronic chart updated): PAST MEDICAL HISTORY Diagnosis Date Depression Vitamin D deficiency PAST SURGICAL HISTORY Procedure Laterality Date NONE FAMILY HISTORY Problem Relation Age of Onset Uterine Fibroids Mother GERD Father Heart Maternal Grandfather Cancer Other Diabetes Other maternal family Social History Tobacco Use Smoking status: Some Days Packs/day: 0.50 Years: 4.00 Additional pack years: 0.00 Total pack years: 2.00 Types: Cigarettes Smokeless tobacco: Never Vaping Use Vaping Use: current everyday user Substances: Nicotine Substance Use Topics Alcohol use: Yes Comment: rarely Drug use: No Current Outpatient Medications Medication Sig FLUoxetine (PROZAC) 10 mg capsule Take 1 capsule by mouth once daily. Add to 40 mg capsule to total 50 mg once a day lamoTRIgine (LAMICTAL) 25 mg tablet Take 2 tablets by mouth daily at bedtime. LORazepam (ATIVAN) 0.5 mg Take 1 tablet by mouth two times a day as needed (panic attack sympt (more content not included)... [facility] 02-15-2023 Note HNO ID: [id number] Author: Iesha Newell APRN.GRAPHIC PRE PRESS 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 Service: ? Author Type: Nurse Practitioner Type: Progress Notes Filed: 02/15/2023 8:42 AM Note Text: 02/15/2023 Patient presents with: Weight Problem: Wants to discuss Ozempic SUBJECTIVE: This is a 27 year old that is here today for Above Complaints. Patient would like to discuss weight loss medication options. Tries to eat vegetables. Does not follow any specific diet or exercise regime. PAST MEDICAL HISTORY Diagnosis Date Depression Vitamin D deficiency ALLERGIES Bee Sting MEDICATIONS Current Outpatient Medications Medication Sig FLUoxetine (PROZAC) 40 mg capsule Take 1 capsule by mouth once daily. lamoTRIgine (LAMICTAL) 25 mg tablet Take 1 tablet by mouth daily at bedtime. VIT37/IRON/FOLIC ACID (PRENATA ORAL) Take by mouth. FOLIC ACID ORAL Take by mouth. (Patient not taking: Reported on 03/11/2021 ) No current facility-administered medications for this visit. Medications and allergies reviewed by this provider. SOCIAL HISTORY Social History Tobacco Use Smoking status: Some Days Packs/day: 0.50 Years: 4.00 Pack years: 2.00 Types: Cigarettes Smokeless tobacco: Never Vaping Use Vaping Use: current everyday user Substances: Nicotine Substance Use Topics Alcohol use: Yes Comment: rarely Drug use: No REVIEW OF SYSTEMS All other reviewed and negative other than HPI. OBJECTIVE: BP 122/84 Pulse 81 Resp 16 Wt 97.8 kg (215 lb 9.6 oz) LMP 02/25/2021 SpO2 98% BMI 35.88 kg/m? . Vital signs reviewed by this provider. APPEARANCE Well appearing, alert, in no acute distress, well-hydrated, well nourished. PNEUMOCOCCAL(1 - PCV) Never done COVID-19 VACCINE(3 - Booster for Moderna series) due on 09/03/2021 INFLUENZA(Season Ended) due on 04/22/2023 PAP TESTING due on 09/15/2025 DTAP,TDAP,TD(9 - Td or Tdap) due on 08/06/2029 HEPATITIS B Completed HEPATITIS C SCREENING Completed HIV SCREENING Completed ASSESSMENT/PLAN: 1. Obesity, Class II, BMI 35-39.9 - ICD9: 278.00, ICD10: E66.9 (primary diagnosis) Weight increasing - Behavioral intervention - medication options discussed, will check with insurance. Common side effects and risks discussed - can discuss controlled medication with PCP care team - handout of weight loss medications options with side effects given to patient - Lengthy discussion in office today regarding diet and exercise. Discussed use of small plate to eat meals from, drink 1 glass of water 10-15 minutes prior to eating meal, drink 8 glasses of water daily, eat fresh fruit and vegetable during meal first then lean protein such as grilled/baked chicken breast or fish, limit carbohydrate intake (less pasta, breads, rice and snack foods) as well as limiting sugars (desserts etc). Important to count / track your calories and exercise as well. Recommend at least 150 minutes of exercise per week Prescription instructions reviewed with patient as applicable. Patient advised if symptoms do not improve or if symptoms worsen sooner, to contact their primary care physician. Potential red flag symptoms discussed with the patient. Reviewed appropriate action plan to take if red flag symptoms occur. Patient agreeable to treatment plan. I spent a total of 25 minutes on the date of the service which included preparing to see the patient. [facility] 02-15-2023 Instructions Iesha Newell APRN.CNP - 02/15/2023 8:23 AM EDT Weight loss medications Contrave Liraglutide Semaglutide documented in this encounter [facility] 02-15-2023 History of Presen t illness Narrative 02/15/2023 Patient presents with: Weight Problem: Wants to discuss Ozempic SUBJECTIVE: This is a 27 year old that is here today for Above Complaints. Patient would like to discuss weight loss medication options. Tries to eat vegetables. Does not follow any specific diet or exercise regime. PAST MEDICAL HISTORY Diagnosis Date Depression Vitamin D deficiency ALLERGIES Bee Sting MEDICATIONS Current Outpatient Medications Medication Sig FLUoxetine (PROZAC) 40 mg capsule Take 1 capsule by mouth once daily. lamoTRIgine (LAMICTAL) 25 mg tablet Take 1 tablet by mouth daily at bedtime. VIT37/IRON/FOLIC ACID (PRENATA ORAL) Take by mouth. FOLIC ACID ORAL Take by mouth. (Patient not taking: Reported on 03/11/2021 ) No current facility-administered medications for this visit. Medications and allergies reviewed by this provider. SOCIAL HISTORY Social History Tobacco Use Smoking status: Some Days Packs/day: 0.50 Years: 4.00 Pack years: 2.00 Types: Cigarettes Smokeless tobacco: Never Vaping Use Vaping Use: current everyday user Substances: Nicotine Substance Use Topics Alcohol use: Yes Comment: rarely Drug use: No REVIEW OF SYSTEMS All other reviewed and negative other than HPI. OBJECTIVE: BP 122/84 Pulse 81 Resp 16 Wt 97.8 kg (215 lb 9.6 oz) LMP 02/25/2021 SpO2 98% BMI 35.88 kg/m . Vital signs reviewed by this provider. APPEARANCE Well appearing, alert, in no acute distress, well-hydrated, well nourished. PNEUMOCOCCAL(1 - PCV) Never done COVID-19 VACCINE(3 - Booster for Moderna series) due on 09/03/2021 INFLUENZA(Season Ended) due on 04/22/2023 PAP TESTING due on 09/15/2025 DTAP,TDAP,TD(9 - Td or Tdap) due on 08/06/2029 HEPATITIS B Completed HEPATITIS C SCREENING Completed HIV SCREENING Completed ASSESSMENT/PLAN: 1. Obesity, Class II, BMI 35-39.9 - ICD9: 278.00, ICD10: E66.9 (primary diagnosis) Weight increasing - Behavioral intervention - medication options discussed, will check with insurance. Common side effects and risks discussed - can discuss controlled medication with PCP care team - handout of weight loss medications options with side effects given to patient - Lengthy discussion in office today regarding diet and exercise. Discussed use of small plate to eat meals from, drink 1 glass of water 10-15 minutes prior to eating meal, drink 8 glasses of water daily, eat fresh fruit and vegetable during meal first then lean protein such as grilled/baked chicken breast or fish, limit carbohydrate intake (less pasta, breads, rice and snack foods) as well as limiting sugars (desserts etc). Important to count / track your calories and exercise as well. Recommend at least 150 minutes of exercise per week Prescription instructions reviewed with patient as applicable. Patient advised if symptoms do not improve or if symptoms worsen sooner, to contact their primary care physician. Potential red flag symptoms discussed with the patient. Reviewed appropriate action plan to take if red flag symptoms occur. Patient agreeable to treatment plan. I spent a total of 25 minutes on the date of the service which included preparing to see the patient. documented in this encounter [facility] 08-27-2022 Miscellaneous Notes Formattin g of this note might be different from the original. Patient notified of results. . Patient verbalizes understanding. Jessy Rosario RN Phone call placed brief message to contact a nurse to review results. Cass Arnett LPN Negative for syphilis please notify thank you documented in this encounter [facility] 08-26-2022 Note HNO ID: [id number] Author: Lori Ozuna APRN.GRAPHIC PRE PRESS 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 Service: ? Author Type: Nurse Practitioner Type: Progress Notes Filed: 08/26/2022 4:42 PM Note Text: Subjective She came in with complaints of rash on the palm of her hands. Patient says she has red bumps. Said yesterday she had 2 bumps. And today she has many more. Patient denies any other symptoms at this time except for a sore throat. Patient is also 7 weeks but has not seen her INTERNETWORKING TECHNICIAN yet. The history is provided by the patient. No language instructor was used. Review of Systems Constitutional: Negative. Skin: Negative. Objective Physical Exam Constitutional: Appearance: Normal appearance. HENT: Mouth/Throat: Mouth: Mucous membranes are moist. Pharynx: Posterior oropharyngeal erythema present. Tonsils: No tonsillar exudate. Pulmonary: Effort: Pulmonary effort is normal. Musculoskeletal: Hands: Comments: Patient does have several raised red bumps in areas marked above none appear to be draining. Neurological: Mental Status: She is alert. PAST MEDICAL HISTORY Diagnosis Date Depression Vitamin D deficiency PAST SURGICAL HISTORY Procedure Laterality Date NONE ALLERGIES Bee Sting MEDICATIONS VIT37/IRON/FOLIC ACID (PRENATA ORAL) Take by mouth. FLUoxetine (PROZAC) 40 mg capsule Take 1 capsule by mouth once daily. (Patient not taking: Reported on 08/26/2022) lamoTRIgine (LAMICTAL) 25 mg tablet Take 1 tablet by mouth daily at bedtime. (Patient not taking: Reported on 08/26/2022) FOLIC ACID ORAL Take by mouth. (Patient not taking: Reported on 03/11/2021 ) FAMILY HISTORY Problem Relation Age of Onset Uterine Fibroids Mother GERD Father Heart Maternal Grandfather Cancer Other Diabetes Other maternal family Social History Tobacco Use Smoking status: Some Days Packs/day: 0.50 Years: 4.00 Pack years: 2.00 Types: Cigarettes Smokeless tobacco: Never Vaping Use Vaping Use: current everyday user Substances: Nicotine Substance Use Topics Alcohol use: Yes Comment: rarely Drug use: No ASSESSMENT/PLAN: 1. Rash of hand - ICD9: 782.1, ICD10: R21 (primary diagnosis) - SYPHILIS TOTAL W/REFLEX 2. Sore throat - ICD9: 462, ICD10: J02.9 - STREP A MOLECULAR (POC) - neg Patient will follow up with FLOW FLOOR ATTENDANT as well. Lori Ozuna APRN.[facility] 08-26-2022 History of Presen t illness Narrative Images from the original note were not included. Subjective She came in with complaints of rash on the palm of her hands. Patient says she has red bumps. Said yesterday she had 2 bumps. And today she has many more. Patient denies any other symptoms at this time except for a sore throat. Patient is also 7 weeks but has not seen her INTERNETWORKING TECHNICIAN yet. The history is provided by the patient. No language instructor was used. Review of Systems Constitutional: Negative. Skin: Negative. Objective Physical Exam Constitutional: Appearance: Normal appearance. HENT: Mouth/Throat: Mouth: Mucous membranes are moist. Pharynx: Posterior oropharyngeal erythema present. Tonsils: No tonsillar exudate. Pulmonary: Effort: Pulmonary effort is normal. Musculoskeletal: Hands: Comments: Patient does have several raised red bumps in areas marked above none appear to be draining. Neurological: Mental Status: She is alert. PAST MEDICAL HISTORY Diagnosis Date Depression Vitamin D deficiency PAST SURGICAL HISTORY Procedure Laterality Date NONE ALLERGIES Bee Sting MEDICATIONS VIT37/IRON/FOLIC ACID (PRENATA ORAL) Take by mouth. FLUoxetine (PROZAC) 40 mg capsule Take 1 capsule by mouth once daily. (Patient not taking: Reported on 08/26/2022) lamoTRIgine (LAMICTAL) 25 mg tablet Take 1 tablet by mouth daily at bedtime. (Patient not taking: Reported on 08/26/2022) FOLIC ACID ORAL Take by mouth. (Patient not taking: Reported on 03/11/2021 ) FAMILY HISTORY Problem Relation Age of Onset Uterine Fibroids Mother GERD Father Heart Maternal Grandfather Cancer Other Diabetes Other maternal family Social History Tobacco Use Smoking status: Some Days Packs/day: 0.50 Years: 4.00 Pack years: 2.00 Types: Cigarettes Smokeless tobacco: Never Vaping Use Vaping Use: current everyday user Substances: Nicotine Substance Use Topics Alcohol use: Yes Comment: rarely Drug use: No ASSESSMENT/PLAN: 1. Rash of hand - ICD9: 782.1, ICD10: R21 (primary diagnosis) - SYPHILIS TOTAL W/REFLEX 2. Sore throat - ICD9: 462, ICD10: J02.9 - STREP A MOLECULAR (POC) - neg Patient will follow up with FLOW FLOOR ATTENDANT as well. Lori Ozuna APRN.CNP documented in this encounter [facility] 05-14-2022 Miscellaneous Notes Formattin g of this note might be different from the original. Please assist patient in making appointment to discuss options. Thank you, Alex Rust APRN.CNP Last OV was 03/23/22, do you want pt to have appointment to discuss increasing meds? documented in this encounter [facility] 03-31-2022 Miscellaneous Notes Formattin g of this note is different from the original. PDMP website checked and validated. All prescriptions have been APPROPRIATELY filled. No suspicious activity was identified. 03/31/2022 by Alex Rust APRN.CNP The following approved medication requests have been transmitted electronically. Requested Prescriptions Signed Prescriptions Disp Refills LORazepam (ATIVAN) 0.5 mg 20 tablet 1 Sig: Take 1 tablet by mouth twice daily as needed (panic attack symptoms) for up to 30 days. Alex Rust APRN.CNP Last OV: 03/23/22 Next OV: None Last Rx: 12/30/21 #20 w/1. Chanel Padron Ma documented in this encounter [facility] 03-23-2022 History of Presen t illness Narrative In lieu of an in person visit due to coronavirus COVID 19 pandemic concerns, a virtual visit was performed with patient. Patient is aware that I am not fully able to assess symptoms and do a full physical exam including vital signs in office at this time. Patient consents to the visit. VIRTUAL VISIT PROGRESS NOTE This is a virtual visit using [employer] video visit. It required patient-provider interaction for the medical decision making as documented below. Nelli Gauthier is a 26 year old female seen for follow up .seen for virtual visit on 11/27/21 Elevated TSH, diagnosed in Fall 2020, hasn't been on thyroid hormone supplements in the past, willing to have labs rechecked. Does struggle with fatigue and weight gain symptoms. maternal grandmother with hypothyroidism Depression symptoms, long standing, has been off her Prozac medication for a few years since her previous boyfriend didn't think she should be on this medication, although she voices that it was very helpful for her. Also struggles with anxiety symptoms. 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 Has trouble falling asleep and staying asleep at times. Also weight gain and fatigue concerns. Also admits that she has the tendency to overspend- maternal grandmother is on [place]. No SI or HI She was restarted on her Prozac At virtual follow up appt on 12/30/21 Depression, anxiety/panic attack symptoms, feels the prozac 20 mg a day that she is taking right now are helping but still struggling with feeling anxiety/panic symptoms at times, mostly when she is overwhelmed feeling. Has a very busy life/schedule with working and her 2 year old daughter. No SI or HI concerns. Asking for labs to be reviewed with her as well from November blood draw Her dose of prozac was increased to 40 mg a day and ativan was added prn for panic attack symptoms only. Currently Mood, still struggling at times with feeling anxiety and occasional manic symptoms as well, never has been on a mood stabilizer in the past. Is taking her 40 mg of Prozac as prescribed and feels this does help the anxiety but not the racing thoughts/mood concerns. Denies any SI or HI. Is working 3rd shift at least 48 hours a week. Does have a lot of stressors. Has been having some b/l arm tingling and pain, has seen Orthopedics with Dr Taylor and had EMG/NCT which was normal, cervical spine xray which was normal. Now scheduled to have MRI cervical spine next and potential visit with neurologist if this is normal to determine cause of symptoms. Does feel may be related to the elbow since placing pressure down on this area exacerbates the symptoms in her forearms/hands. HISTORY REVIEWED (electronic chart updated): PAST MEDICAL HISTORY Diagnosis Date Depression Vitamin D deficiency PAST SURGICAL HISTORY Procedure Laterality Date NONE FAMILY HISTORY Problem Relation Age of Onset Uterine Fibroids Mother GERD Father Heart Maternal Grandfather Cancer Other Diabetes Other maternal family Social History Tobacco Use Smoking status: Current Some Day Smoker Packs/day: 0.50 Years: 4.00 Pack years: 2.00 Smokeless tobacco: Never Used Vaping Use Vaping Use: current everyday user Substances: Nicotine Substance Use Topics Alcohol use: Yes Comment: rarely Drug use: No Current Outpatient Medications Medication Sig FLUoxetine (PROZAC) 40 mg capsule Take 1 capsule by mouth once daily. lamoTRIgine (LAMICTAL) 25 mg tablet Take 1 tablet by mouth daily at bedtime. VIT37/IRON/FOLIC ACID (PRENATA ORAL) Take by mouth. (Patient not taking: Reported on 03/11/2021 ) FOLIC ACID ORAL Take by mouth. (Patient not taking: Reported on 03/11/2021 ) No current facility-administered medications for this visit. ALLERGIES Allergen Reactions Bee Sting Hives REVIEW OF SYSTEMS: As noted in HPI PHYSICAL EXAMINATION: VIDEO EXAM: (if completed, performed via video enabled technology) GENERAL: alert and appropriate, in no distress and well-hydrated, well nourished ASSESSMENT: (F30.10) Manic behavior (HCC) (primary encounter diagnosis) (F32.9) Depression, major (F41.0) Panic attack PLAN: Add on Lamictal in the evening. Continue prozac 40 mg a day- consider titrating up dose if needed. Continue ativan prn. Needs to be considering therapy/counseling as well. F/u with Orthopedics for arm symptoms There are no Patient Instructions on file for this visit. I spent a total of 35 minutes on the date of the service which included preparing to see the patient, [id number] patient care, completing clinical documentation, obtaining and/or reviewing separately obtained history and performing a medically appropriate examination Miguelangel Harkins DO documented in this encounter [facility] 12-30-2021 History of Presen t illness Narrative In lieu of an in person visit due to coronavirus COVID 19 pandemic concerns, a virtual visit was performed with patient. Patient is aware that I am not fully able to assess symptoms and do a full physical exam including vital signs in office at this time. Patient consents to the visit. VIRTUAL VISIT PROGRESS NOTE This is a virtual visit using [employer] video visit. It required patient-provider interaction for the medical decision making as documented below. Nelli Gauthier is a 26 year old female seen for follow up .seen for virtual visit on 11/27/21 Elevated TSH, diagnosed in Fall 2020, hasn't been on thyroid hormone supplements in the past, willing to have labs rechecked. Does struggle with fatigue and weight gain symptoms. maternal grandmother with hypothyroidism Depression symptoms, long standing, has been off her Prozac medication for a few years since her previous boyfriend didn't think she should be on this medication, although she voices that it was very helpful for her. Also struggles with anxiety symptoms. 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 Has trouble falling asleep and staying asleep at times. Also weight gain and fatigue concerns. Also admits that she has the tendency to overspend- maternal grandmother is on [place]. No SI or HI She was restarted on her Prozac Currently Depression, anxiety/panic attack symptoms, feels the prozac 20 mg a day that she is taking right now are helping but still struggling with feeling anxiety/panic symptoms at times, mostly when she is overwhelmed feeling. Has a very busy life/schedule with working and her 2 year old daughter. No SI or HI concerns. Asking for labs to be reviewed with her as well from November blood draw HISTORY REVIEWED (electronic chart updated): PAST MEDICAL HISTORY Diagnosis Date Depression Vitamin D deficiency PAST SURGICAL HISTORY Procedure Laterality Date NONE FAMILY HISTORY Problem Relation Age of Onset Uterine Fibroids Mother GERD Father Heart Maternal Grandfather Cancer Other Diabetes Other maternal family Social History Tobacco Use Smoking status: Current Some Day Smoker Packs/day: 0.50 Years: 4.00 Pack years: 2.00 Smokeless tobacco: Never Used Vaping Use Vaping Use: current everyday user Substances: Nicotine Substance Use Topics Alcohol use: Yes Comment: rarely Drug use: No Current Outpatient Medications Medication Sig FLUoxetine (PROZAC) 40 mg capsule Take 1 capsule by mouth once daily. LORazepam (ATIVAN) 0.5 mg Take 1 tablet by mouth twice daily as needed (panic attack symptoms) for up to 30 days. VIT37/IRON/FOLIC ACID (PRENATA ORAL) Take by mouth. (Patient not taking: Reported on 03/11/2021 ) FOLIC ACID ORAL Take by mouth. (Patient not taking: Reported on 03/11/2021 ) No current facility-administered medications for this visit. ALLERGIES Allergen Reactions Bee Sting Hives REVIEW OF SYSTEMS: As noted in HPI PHYSICAL EXAMINATION: VIDEO EXAM: (if completed, performed via video enabled technology) GENERAL: alert and appropriate, in no distress, well-hydrated, well nourished and appears tired ASSESSMENT: (F41.0) Panic attack (primary encounter diagnosis) (F32.9) Depression, major PLAN: incresae dose of prozac to 40 mg a day and add on prn use of ativan. Titrate up as needed, can consider adding on wellbutrin if needed in future, f/u in 6 weeks. Reviewed lab results with her today as well. There are no Patient Instructions on file for this visit. I spent a total of 20 minutes on the date of the service which included preparing to see the patient, [id number] patient care, completing clinical documentation and ordering medications, tests, or procedures Miguelangel Harkins DO documented in this encounter [facility] 11-27-2021 History of Presen t illness Narrative In lieu of an in person visit due to coronavirus COVID 19 pandemic concerns, a virtual visit was performed with patient. Patient is aware that I am not fully able to assess symptoms and do a full physical exam including vital signs in office at this time. Patient consents to the visit. VIRTUAL VISIT PROGRESS NOTE This is a virtual visit using [employer] video visit. It required patient-provider interaction for the medical decision making as documented below. Nelli Gauthier is a 25 year old female seen for follow up Elevated TSH, diagnosed in Fall 2020, hasn't been on thyroid hormone supplements in the past, willing to have labs rechecked. Does struggle with fatigue and weight gain symptoms. maternal grandmother with hypothyroidism Depression symptoms, long standing, has been off her Prozac medication for a few years since her previous boyfriend didn't think she should be on this medication, although she voices that it was very helpful for her. Also struggles with anxiety symptoms. 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 Has trouble falling asleep and staying asleep at times. Also weight gain and fatigue concerns. Also admits that she has the tendency to overspend- maternal grandmother is on [place]. No SI or HI HISTORY REVIEWED (electronic chart updated): PAST MEDICAL HISTORY Diagnosis Date Depression Vitamin D deficiency PAST SURGICAL HISTORY Procedure Laterality Date NONE FAMILY HISTORY Problem Relation Age of Onset Uterine Fibroids Mother GERD Father Heart Maternal Grandfather Cancer Other Diabetes Other maternal family Social History Tobacco Use Smoking status: Current Some Day Smoker Packs/day: 0.50 Years: 4.00 Pack years: 2.00 Smokeless tobacco: Never Used Vaping Use Vaping Use: current everyday user Substances: Nicotine Substance Use Topics Alcohol use: Yes Comment: rarely Drug use: No Current Outpatient Medications Medication Sig VIT37/IRON/FOLIC ACID (PRENATA ORAL) Take by mouth. (Patient not taking: Reported on 03/11/2021 ) FOLIC ACID ORAL Take by mouth. (Patient not taking: Reported on 03/11/2021 ) No current facility-administered medications for this visit. ALLERGIES Allergen Reactions Bee Sting Hives REVIEW OF SYSTEMS: As noted in HPI PHYSICAL EXAMINATION: VIDEO EXAM: (if completed, performed via video enabled technology) GENERAL: alert and appropriate, in no distress, well-hydrated, well nourished, appears tired and appears anxious ASSESSMENT: (R79.89) Elevated TSH (primary encounter diagnosis) (F32.9) Depression, major (F41.9, F32.A) Anxiety and depression (R53.83) Fatigue, unspecified type (Z13.220) Screening for lipid disorders PLAN: Recheck thyroid labs as ordered, if abnormal, then start on thyroid hormone as d/w her today. Also likely will need Thyroid US to be checked in future. Depressive and anxiety symptoms, ? Depression with hypomania. Restart Prozac, titrate up as needed, consider adding mood stabilizer if symptoms worsen. There are no Patient Instructions on file for this visit. I spent a total of 29 minutes on the date of the service which included preparing to see the patient, [id number] patient care, completing clinical documentation, obtaining and/or reviewing separately obtained history, performing a medically appropriate examination and ordering medications, tests, or procedures Miguelangel Harkins DO documented in this encounter [facility] Diagnosis Panic attack- Primary Panic disorder without agoraphobia Depression, major Major depressive disorder, single episode, unspecified Current moderate episode of major depressive disorder without prior episode (HCC) [facility] Diagnosis Manic behavior (HCC)- Primary Bipolar I disorder, single manic episode, unspecified Depression, major Major depressive disorder, single episode, unspecified Panic attack Panic disorder without agoraphobia Current moderate episode of major depressive disorder without prior episode (HCC) [facility] Diagnosis Panic attack Panic disorder without agoraphobia [facility] Diagnosis Rash of hand- Primary Sore throat Acute pharyngitis [facility]* Diagnosis Obesity, Class II, BMI 35-39.9- Primary Obesity, unspecified [facility]* Diagnosis Panic attack Panic disorder without agoraphobia [facility]* Diagnosis Elevated TSH- Primary Nonspecific abnormal results of thyroid function study Panic attack Panic disorder without agoraphobia Manic behavior (HCC) Bipolar I disorder, single manic episode, unspecified Hyperglycemia Other abnormal glucose Fatigue, unspecified type [facility] noteNo assessment information availableCoWilson Memorial [facility] Work Phone: Family History No Family History Records Found Grandfather Name Dates Details Family history of myocardial infarction(V17.3, Z82.49) Status:Active Family history of diabetes m ellitus(V18.0, Z83.3) Status:Active Summary Purpose Advance Directives No Advanced Directives Records FoundNo Advanced Directives Records FoundNo Advanced Directives Records Found Chief Complaint and Reason for Visit Chief Complaint LEFT JOSELYN Sherman Additional Source Comments INFORMATION SOURCE (unrecogn ized section and content) DATE CREATED AUTHOR AUTHOR'S ORGANIZ ATION 07/09/2023 [facility] DATE CREATED AUTHOR AUTHOR'S ORGANIZ ATION 10/18/2023 [facility] Source Comments (unrecognize d section and content) In the event this informatio n is protected by the Federal Confidentiality of Alcohol and Drug Abuse Patient Records regulations: The Federal rules restrict any use of the information to criminally investigate or prosecute any alcohol or drug abuse patient.[facility] the event this information is protected by the Federal Confidentiality of Alcohol and Drug Abuse Patient Records regulations: The Federal rules restrict any use of the information to criminally investigate or prosecute any alcohol or drug abuse patient.[facility] the event this information is protected by the Federal Confidentiality of Alcohol and Drug Abuse Patient Records regulations: The Federal rules restrict any use of the information to criminally investigate or prosecute any alcohol or drug abuse patient.[facility] the event this information is protected by the Federal Confidentiality of Alcohol and Drug Abuse Patient Records regulations: The Federal rules restrict any use of the information to criminally investigate or prosecute any alcohol or drug abuse patient.[facility] the event this information is protected by the Federal Confidentiality of Alcohol and Drug Abuse Patient Records regulations: The Federal rules restrict any use of the information to criminally investigate or prosecute any alcohol or drug abuse patient.[facility] the event this information is protected by the Federal Confidentiality of Alcohol and Drug Abuse Patient Records regulations: The Federal rules restrict any use of the information to criminally investigate or prosecute any alcohol or drug abuse patient.[facility] the event this information is protected by the Federal Confidentiality of Alcohol and Drug Abuse Patient Records regulations: The Federal rules restrict any use of the information to criminally investigate or prosecute any alcohol or drug abuse patient.[facility] the event this information is protected by the Federal Confidentiality of Alcohol and Drug Abuse Patient Records regulations: The Federal rules restrict any use of the information to criminally investigate or prosecute any alcohol or drug abuse patient.[facility] the event this information is protected by the Federal Confidentiality of Alcohol and Drug Abuse Patient Records regulations: The Federal rules restrict any use of the information to criminally investigate or prosecute any alcohol or drug abuse patient.[facility] the event this information is protected by the Federal Confidentiality of Alcohol and Drug Abuse Patient Records regulations: The Federal rules restrict any use of the information to criminally investigate or prosecute any alcohol or drug abuse patient.[facility] Reason for Visit (unrecogniz ed section and content) Reason Comments Follow Up Reason Comments red bumps on hands X 2 days Reason Comments Results Reason Comments Weight Problem Wants to discuss Oze [facility] Specialty Diagnoses / Procedures Referred By Irma t Referred To Contact Family Medicine / FAMILY MEDICINE Diagnoses I would like to discuss Ozempic Procedures MYC OFFICE VISIT Self Iesha Newell APRN.GRAPHIC [employer] 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 [address] [place] [address] Referral ID Status Reason Start Date Expiration Date V isits Requested Visits Authorized [id number] Closed Patient Cleared - Qualified 100% FAS 02/09/2023 05/10/2023 99 99 Reason Onset Date Comments Refill Request 06/20/2023 Care Teams (unrecognized sec tion and content) Solid Waste Collector Relationship Specialty Start Date End Date Miguelangel Harkins, DO [address] [facility] [place] [address] PCP - General Family Practice 02/15/13 Solid Waste Collector Relationship Specialty Start Date End Date Miguelangel Harkins, DO [address] [facility] [place] [address] PCP - General Family Practice 02/15/13 Solid Waste Collector Relationship Specialty Start Date End Date Miguelangel Harkins DO [address] [facility] [place] [address] PCP - General Family Medicine 02/15/13 Solid Waste Collector Relationship Specialty Start Date End Date Miguelangel Harkins DO [address] [facility] [place] [address] PCP - General Family Medicine 02/15/13 Solid Waste Collector Relationship Specialty Start Date End Date Miguelangel Harkins DO [address] [facility] [place] [address] PCP - General Family Medicine 02/15/13 Solid Waste Collector Relationship Specialty Start Date End Date Miguelangel Harkins DO [address] [place] [address] PCP - General Family Medicine 02/15/13 Solid Waste Collector Relationship Specialty Start Date End Date Miguelangel Harkins DO [address] [place] [address] PCP - General Family Medicine 02/15/13 Team Status: Active Member Role Status Dates SAMARA LINDSEY GARCIA APRN Primary Care Provider Active Start: October 11, 2023 GARCIA RUDD MD Emergency Provider Active Star t: October 11, 2023 SANDIE BRAD next of kin Active NELLI GAUTHIER Guarantor Active Goals (unrecognized section and content) Goals may be documented in a n alternate section FOR RECORDS PERTAINING TO PATIENTS WHO ARE OR HAVE BEEN ENROLLED IN A CHEMICAL DEPENDENCY/SUBSTANCEABUSE PROGRAM, SOME INFORMATION MAY BE OMITTED. This clinical summary was aggregated from multiple sources. Caution should be exercised in using it in the provision of clinical care. This summary normalizes information from multiple sources, and as a consequence, information in this document may materially change the coding, format and clinical context of patient data. In addition, data may be omitted in some cases. CLINICAL DECISIONS SHOULD BE BASED ON THE PRIMARY CLINICAL RECORDS. [employer] provides no warranty or guarantee of the accuracy or completeness of information in this document.
[2023-10-20 07:45] VITALS: BP 144/88; PULSE 100; RESP 16; TEMP 36.8; O2SAT 100
== END 2023-10-20 07:47 | disposition home or self-care (01) ==
PROVIDERS: Emergency Provider Emergency Medicine; PCP Student in an Organized Health Care Education/Training Program; Visit Provider Emergency Medicine
DX: Z48.02 Encounter for removal of sutures (principal); F17.200 Nicotine dependence, unspecified, uncomplicated
CPT/HCPCS: 99283

== ENCOUNTER 2023-11-05 20:46 | Emergency (ER) | payer MEDICAID, SELFPAY ==
[2023-11-05 20:47] VITALS: BP 157/88; PULSE 100; RESP 17; TEMP 36.9; O2SAT 100; BMI 37.4
--- NOTE | 2023-11-05 20:59 | EDS_ITS ---
HPI <ARIELLE Palencia - Last Filed: 11/05/23 21:54> History of Present Illness Chief Complaint: Abd Pain Narrative Narrative: 27-year-old female states she had influenza B about 2 weeks ago. She was starting to recover and a week ago developed upper abdominal pain after eating. Its diffuse cramping upper belly pain that then slowly makes its way down to the lower quadrants. It can last several hours. She occasionally has nausea but no vomiting. She has normal daily bowel movements and denies melena or hematochezia. No urinary symptoms. No history of abdominal surgeries. She vapes; no frequent alcohol use. [facility] <ARIELLE Palencia - Last Filed: 11/05/23 21:54> [facility] Medical History History of depression Home Medications omeprazole 20 mg capsule,delayed release 20 mg PO DAILY #14 CAPSULES 11/05/23 [Rx Last Taken Unknown] Allergy/AdvReac Type Severity Reaction Status Date / Time bee venom protein (honey bee) Allergy Rash Verified 11/05/23 20:49 Family History Grandfather Myocardial infarction Diabetes maternal Father Diabetes Surgical History S/P dilation and curettage (~09/15/22) Social History adopted: No household members: significant other and children housing: house number of children: 1 current occupational status: unemployed current occupation: [employer] current occupational exposures/hazards: No pets and animals: No history of recent travel: No sexually active: Yes Smoking Status: Current every day smoker tobacco type: cigarettes and e-cigarettes alcohol intake: never substance use type: does not use well-balanced diet: daily or most days caffeine: Yes Type: coffee Number of servings: 2 eating out: rarely or never during the past year weight has: increased > 10 lbs what type of physical activity do you participate in: walking frequency: 1-2 times per week duration: 15-30 minutes/day adwoa/orthodox: None seatbelt use: always do you feel safe at home: Yes additional social history: [employer] ([employer], Ilir and Kuldeep) ROS <ARIELLE Palencia - Last Filed: 11/05/23 21:54> ROS ED ROS Narrative Constitutional: Negative for fever, chills, malaise. CVS: Negative for chest pain. Respiratory: Negative for shortness of breath. GI: Positive for abdominal pain, nausea. Negative for vomiting, diarrhea, constipation, melena, hematochezia. : Negative for dysuria, hematuria or frequency. EXAM <ARIELLE Palencia - Last Filed: 11/05/23 21:54> Physical Exam Narrative Exam Narrative: CONST: Patient sitting in no acute distress. EYES: Normal inspection. NECK: Normal inspection. RESP: No respiratory distress, CTAB. CVS: Regular rate and rhythm, no murmur, no gallop. ABD: Soft and nontender, no guarding or rebound, nondistended, no hepatosplenomegaly. Negative Amador sign. SKIN: Color normal, no rash, warm, dry, intact. EXTREMITIES: Normal appearance, no pedal edema. NEURO: Oriented x4. PSYCH: Normal affect. Const Vital Signs: 11/05/23 20:47 Temperature 98.4 F Temperature Source Temporal Pulse Rate 100 Respiratory Rate 17 Blood Pressure 157/88 H Blood Pressure Mean 111 Pulse Ox 100 Oxygen Delivery Method Room Air <Dr. Higinio Isabel MD - Last Filed: 11/05/23 22:08> Physical Exam Const Vital Signs: 11/05/23 20:47 Temperature 98.4 F Temperature Source Temporal Pulse Rate 100 Respiratory Rate 17 Blood Pressure 157/88 H Blood Pressure Mean 111 Pulse Ox 100 Oxygen Delivery Method Room Air MDM <ARIELLE Palencia - Last Filed: 11/05/23 21:54> [facility] Narrative Medical decision making narrative: Differential: GERD, biliary colic, cholecystitis, pancreatitis Patient has had 1 week of postprandial right upper quadrant/epigastric pain. She appears well and nontoxic. Vital signs stable. Normal cardiopulmonary exam. She has no reproducible tenderness on exam and a negative Amador sign. Labs show white count of 11.3. Glucose is 183. She has normal renal function and normal LFTs and lipase. test is negative. She was treated with IV Toradol here. She feels improved and has serial benign exam. I filled out in order to arrange an outpatient RUQ ultrasound and prescribed omeprazole in case this is more related to GERD. I discussed return precautions and she was discharged in stable condition. Lab Data Attestation: I reviewed the patient's lab results. Labs: Laboratory Results - last 24 hr 11/05/23 21:10 WBC 11.3 H RBC 4.41 Hgb 12.5 Hct 38.5 MCV 87.3 MCH 28.3 MCHC 32.5 RDW Std Deviation 38.5 RDW Coeff of Leroy 11.9 Plt Count 413 MPV 9.6 Immature Gran % (Auto) 0.300 Neut % (Auto) 51.9 Lymph % (Auto) 34.8 Conway % (Auto) 8.6 Eos % (Auto) 3.6 Baso % (Auto) 0.8 Absolute Neuts (auto) 5.9 Absolute Lymphs (auto) 3.94 Nucleated RBC % 0 Sodium 138 Potassium 3.7 Chloride 109 H Carbon Dioxide 25.0 Anion Gap 4 L BUN 8 Creatinine 0.80 Estim Creat Clear Calc 129.52 Est GFR (MDRD) Af Amer 109 Est GFR (MDRD) Non-Af 90 BUN/Creatinine Ratio 10.0 Glucose 183 H Calcium 8.6 Total Bilirubin 0.20 AST 17 ALT 28 Alkaline Phosphatase 71 Total Protein 7.2 Albumin 3.4 Globulin 3.8 Albumin/Globulin Ratio 0.9 Lipase 49 Serum , Qual NEGATIVE <Dr. Higinio Isabel MD - Last Filed: 11/05/23 22:08> MDM MDM Narrative Medical decision making narrative: Differential: GERD, biliary colic, cholecystitis, pancreatitis Patient has had 1 week of postprandial right upper quadrant/epigastric pain. She appears well and nontoxic. Vital signs stable. Normal cardiopulmonary exam . She has no reproducible tenderness on exam and a negative Amador sign. Labs show white count of 11.3. Glucose is 183. She has normal renal function and normal LFTs and lipase. test is negative. She was treated with IV Toradol here. She feels improved and has serial benign exam. I filled out in order to arrange an outpatient RUQ ultrasound and prescribed omeprazole in case this is more related to GERD. I discussed return precautions and she was discharged in stable condition. I have personally performed a face to face assessment of the patient and have reviewed the BLAS Note. I performed a substantive portion of the visit including all aspects of the following. My quijano findings include: History is remarkable for abdominal pain that she localizes right upper quadrant for me. There is family history cholelithiasis. She informed the nurse practitioner the pain is all over. She does report nausea without vomiting diarrhea. She denies intolerance to greasy or fried foods. She states anytime she eats she gets pain. She not had any recent weight loss to consider SMA syndrome. The pain does not radiate into her back. She denies history of renal ureterolithiasis. There is no family history of renal or ureterolithiasis. She denies dysuria, frequency, urgency or hematuria. She denies cardiac or respiratory symptoms. Exam is remarkable for minimal tenderness in the right upper quadrant. Negative Amador sign. Lungs are clear to auscultation with symmetric breath sounds. Heart is regular. Rate is normal. There is no murmur, gallop or rub. There is no CVA tenderness noted. There is no dermatologic lesions noted. There is no suprapubic discomfort. Medical Decision Making differential diagnosis is abdominal pain unknown etiology, postprandial pain and doubt SMA syndrome, cholelithiasis biliary colic, cholecystitis. Other additions or changes: Slight elevated white count. 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 Lab Data Labs: Laboratory Results - last 24 hr 11/05/23 21:10 WBC 11.3 H RBC 4.41 Hgb 12.5 Hct 38.5 MCV 87.3 MCH 28.3 MCHC 32.5 RDW Std Deviation 38.5 RDW Coeff of Leroy 11.9 Plt Count 413 MPV 9.6 Immature Gran % (Auto) 0.300 Neut % (Auto) 51.9 Lymph % (Auto) 34.8 Conway % (Auto) 8.6 Eos % (Auto) 3.6 Baso % (Auto) 0.8 Absolute Neuts (auto) 5.9 Absolute Lymphs (auto) 3.94 Nucleated RBC % 0 Sodium 138 Potassium 3.7 Chloride 109 H Carbon Dioxide 25.0 Anion Gap 4 L BUN 8 Creatinine 0.80 Estim Creat Clear Calc 129.52 Est GFR (MDRD) Af Amer 109 Est GFR (MDRD) Non-Af 90 BUN/Creatinine Ratio 10.0 Glucose 183 H Calcium 8.6 Total Bilirubin 0.20 AST 17 ALT 28 Alkaline Phosphatase 71 Total Protein 7.2 Albumin 3.4 Globulin 3.8 Albumin/Globulin Ratio 0.9 Lipase 49 Serum , Qual NEGATIVE Discharge Plan Triage Chief Complaint: Abd Pain ED Midlevel Provider: Nae Bobby ED Provider: Higinio Isabel Dx/Rx/DC Orders Clinical Impression: Abdominal pain, RUQ Instructions: ED Epigastric Pain Uncertain Cause Prescriptions: New omeprazole 20 mg capsule,delayed release(DR/EC) 20 mg PO DAILY Qty: 14 0RF Other Ambulatory Orders: Gallbladder (Routine) Facility: [facility] - Location: [facility] Ordered By: Nae Bobby Primary Care Provider: Miguelangel Levi Referrals: Miguelangel Levi DO [Primary Care Provider] - Activity Restrictions/Additional Instructions: Take omeprazole once daily. This helps reduce the amount of acid your stomach makes. Avoid fried or fatty foods, avoid spicy foods and tomato sauce/marinara. Follow-up with your primary care doctor if symptoms persist. You may need other testing such as an ultrasound of your gallbladder. Disposition Disposition: Home, Self Care
[2023-11-05] MEDS: Ketorolac 15 MG/ML Vial IV (21:12)
--- OUTSIDE RECORDS SUMMARY | 2023-11-05 21:19 | XMS RPT_ITS | CCD ---
Author Name Unknown Address [address] [place] [address] Organization [facility] Care Team Providers Care Noodle Catalyst Maker Name Role Phone Larisa Rodriguez Unavailable Unavailable Larisa Rodriguez Unavailable Unavailable Miguelangel Harkins DO Primary Care Provider Miguelangel Harkins DO Primary Care Provider Miguelangel Harkins DO Primary Care Provider Miguelangel Harkins DO Primary Care Provider IESHA NEWELL Attending Unavailable MIGUELANGEL HARIKNS Primary Care Unavailable SELF Referring Unavailable LORI OZUNA Referring Unavailable MIGUELANGEL HARKINS Primary Care Unavailable MIGUELANGEL HARKINS Primary Care Unavailable MIGUELANGEL HARKINS Referring Unavailable MIGUELANGEL HARKINS Primary Care Unavailable MIGUELANGEL HARKINS Attending Unavailable MIGUELANGEL HARKINS Primary Care Unavailable MIGUELANGEL HARKINS Attending Unavailable MIGUELANGEL HARKINS Primary Care Unavailable CHERELLE GARCIA Primary Care Provider MD GARCIA RUDD Emergency Provider [phone] UNKNOWN, PROVIDER Primary Care Unavailable GACRIA RUDD Attending Unavailable Allergies Allergy Classification Reported Allergen(s) Allergy Type Date of Onset Reaction(s) Facility (11 sources) Bee Sting; Translations: [BEE STING] Allergy to substance 02-07-2013 Hives [facility] Work Phone: Medications Current Medications Medication Drug [...] 170.18 cm CHERELLE SAMARA NERIRETT Work Phone: [facility] 10-11-2023 13:55-0500 Body temperature 98.2 [degF] CHEMISTRY ASSOCIATE SAMARA NERIRETT Work Phone: [facility] 10-11-2023 13:55-0500 Body weight 81.65 kg CHERELLE SAMARA NERIRETT Work Phone: [facility] 10-11-2023 13:55-0500 Diastolic blood pressure 89 mm[Hg] CHERELLE SAMARA NERIRETT Work Phone: [facility] 10-11-2023 13:55-0500 Heart rate 90 /min CHERELLE SAMARA NERIRETT Work Phone: [facility] 10-11-2023 13:55-0500 Respiratory rate 18 /min CHERELLE SAMARA RADHA Work Phone: [facility] 10-11-2023 13:55-0500 SaO2% (BldA) [Mass fraction] 99 % CHERELLE SAMARA GARCIA Work Phone: [facility] 10-11-2023 13:55-0500 Systolic blood pressure 134 mm[Hg] CHEMISTRY ASSOCIATE SAMARA GARCIA Work Phone: [facility] 02-15-2023 08:04-0400 Body weight 97.8 kg Iesha Podlogar CHEMISTRY ASSOCIATE.TYPO MACHINE OPERATOR Work Phone: [facility] 02-15-2023 08:04-0400 Diastolic blood pressure 84 mm[Hg] Iesha Podlogar CHEMISTRY ASSOCIATE.TYPO MACHINE OPERATOR Work Phone: [facility] 02-15-2023 08:04-0400 Heart rate 81 /min Iesha Podlogar CHEMISTRY ASSOCIATE.TYPO MACHINE OPERATOR Work Phone: [facility] 02-15-2023 08:04-0400 Respiratory rate 16 /min Iesha Podlogar CHEMISTRY ASSOCIATE.TYPO MACHINE OPERATOR Work Phone: [facility] 02-15-2023 08:04-0400 SaO2% (BldA) [Mass fraction] 98 % Iesha Podlogar CHEMISTRY ASSOCIATE.TYPO MACHINE OPERATOR Work Phone: [facility] 02-15-2023 08:04-0400 Systolic blood pressure 122 mm[Hg] Iesha Podlogar CHEMISTRY ASSOCIATE.TYPO MACHINE OPERATOR Work Phone: [facility] 08-26-2022 16:16-0500 Body temperature 99.19 [degF] Lori Ozuna CHEMISTRY ASSOCIATE.TYPO MACHINE OPERATOR Work Phone: [facility] 08-26-2022 16:16-0500 Body weight 95.89 kg Lori Ozuna CHEMISTRY ASSOCIATE.TYPO MACHINE OPERATOR Work Phone: [facility] 08-26-2022 16:16-0500 Diastolic blood pressure 72 mm[Hg] Lori Ozuna CHEMISTRY ASSOCIATE.TYPO MACHINE OPERATOR Work Phone: [facility] 08-26-2022 16:16-0500 Heart rate 109 /min Lori Ozuna CHEMISTRY ASSOCIATE.TYPO MACHINE OPERATOR Work Phone: [facility] 01-05-2023 16:16-0500 Respiratory rate 18 /min Lori Ouzna 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 Work Phone: [facility] 08-26-2022 16:16-0500 SaO2% (BldA) [Mass fraction] 98 % Lori Ozuna 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 Work Phone: [facility] 08-26-2022 16:16-0500 Systolic blood pressure 122 mm[Hg] Lori Ozuna 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 Work Phone: [facility] 12-28-2019 11:35-0400 BMI (Body Mass Index) 31.34 kg/m2 [facility] Work Phone: 12-28-2019 11:35-0400 Body weight 86.75 kg [facility] Work Phone: 12-28-2019 11:35-0400 BP Diastolic 72 mm[Hg] [facility] Work Phone: Encounters Encounter Date Encounter Type Care Provider Facility Start: 10-11-2023 End: 10-11-2023 Emergency department patient visit PROVIDER UNKNOWN Facility: Start: 10-11-2023 End: 10-11-2023 Emergency department patient visit CHERELLE SAMARA NERIRETT Work Phone: [facility] Start: 07-05-2023 End: 07-06-2023 ambulatory Miguelangel Harkins DO Work Phone: [facility] [place] Procedures Date Procedure Procedure Detail Performing Clinician Start: 08-26-2022 STREP A MOLECULAR (POC) Lori Ozuna 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 Work Phone: Start: 12-28-2019 Follow-up visit Plan of Treatment Date Care Activity Detail Author Start: 08-06-2029 Urine microalbumin profile [facility] Start: 09-15-2025 PAP TESTING PAP TESTING [facility] Start: 03-11-2024 PAP TESTING PAP TESTING [facility] Start: 07-05-2023 End: 10-04-2023 25-hydroxyvitamin D3 [Mass/volume] in Serum or Plasma [facility] Work Phone: Immunizations Immunization Date Immunization Notes Care Provider Quirino sin 10-25-2019 measles, mumps and rubella virus vaccine Miguelangel Harkins DO Work Phone: [facility] Work Phone: 08-06-2019 diphtheria, tetanus toxoids and acellular pertussis vaccine, unspecified formulation Miguelangel Harkins DO Work Phone: [facility] Work Phone: 08-06-2019 tetanus toxoid, redu keaton diphtheria toxoid, and acellular pertussis vaccine, adsorbed Miguelangel Harkins DO Work Phone: [facility] Work Phone: 06-09-2014 tetanus and diphther ia toxoids, adsorbed, preservative free, for adult use (2 Lf of tetanus toxoid and 2 Lf of diphtheria toxoid) Miguelangel Harkins DO Work Phone: [facility] Work Phone: 10-13-2009 human papilloma viru s vaccine, quadrivalent Miguelangel Harkins DO Work Phone: [facility] Work Phone: 10-13-2009 varicella virus vaccine Jord an Harkins DO Work Phone: [facility] Work Phone: 08-12-2009 human papilloma viru s vaccine, quadrivalent Miguelangel Harkins DO Work Phone: [facility] Work Phone: 08-12-2009 tetanus toxoid, redu keaton diphtheria toxoid, and acellular pertussis vaccine, adsorbed Imguelangel Harkins DO Work Phone: [facility] Work Phone: 06-11-2009 human papilloma viru s vaccine, quadrivalent Miguelangel Harkins DO Work Phone: [facility] Work Phone: 06-11-2009 meningococcal polysaccharide (groups A, C, Y and W-135) diphtheria toxoid conjugate vaccine (MCV4P) Miguelangel Harkins DO Work Phone: [facility] Work Phone: 04-15-2000 diphtheria, tetanus toxoids and acellular pertussis vaccine Miguelangel Harkins DO Work Phone: [facility] Work Phone: 04-15-2000 measles, mumps and rubella virus vaccine Miguelangel Harkins DO Work Phone: [facility] Work Phone: 04-15-2000 poliovirus vaccine, inactivated Miguelangel Harkins DO Work Phone: [facility] Work Phone: 04-15-2000 varicella virus vaccine Jord an Harkins DO Work Phone: [facility] Work Phone: 06-14-1997 diphtheria, tetanus toxoids and acellular pertussis vaccine Miguelangel Harkins DO Work Phone: [facility] 06-14-1997 haemophilus influenz ae type b vaccine, HbOC conjugate Miguelangel Harkins DO Work Phone: [facility] 06-14-1997 haemophilus influenz ae type b vaccine, PRP-T conjugate Miguelangel Harkins DO Work Phone: [facility] Work Phone: 04-03-1997 measles, mumps and rubella virus vaccine Miguelangel Harkins DO Work Phone: [facility] 10-25-1996 diphtheria, tetanus toxoids and acellular pertussis vaccine Miguelangel Harkins DO Work Phone: [facility] 10-25-1996 haemophilus influenz ae type b vaccine, HbOC conjugate Miguelangel Harkins DO Work Phone: [facility] 10-25-1996 haemophilus influenz ae type b vaccine, PRP-T conjugate Miguelangel Harkins DO Work Phone: [facility] Work Phone: 10-25-1996 poliovirus vaccine, inactivated Miguelangel Harkins DO Work Phone: [facility] Work Phone: 10-25-1996 trivalent poliovirus vaccine, live, oral Miguelangel Harkins DO Work Phone: [facility] 06-12-1996 diphtheria, tetanus toxoids and acellular pertussis vaccine Miguelangel Harkins DO Work Phone: [facility] Work Phone: 06-12-1996 haemophilus influenz ae type b vaccine, PRP-T conjugate Miguelangel Harkins DO Work Phone: [facility] Work Phone: 06-12-1996 hepatitis B vaccine, pediatric or pediatric/adolescent dosage Miguelangel Harkins DO Work Phone: [facility] Work Phone: 06-12-1996 poliovirus vaccine, inactivated Miguelangel Harkins DO Work Phone: [facility] Work Phone: 03-06-1996 diphtheria, tetanus toxoids and acellular pertussis vaccine Miguelangel Harikns DO Work Phone: [facility] Work Phone: 03-06-1996 DTaP-Haemophilus influenzae type b conjugate vaccine Miguelangel Harkins DO Work Phone: [facility] 03-06-1996 haemophilus influenz ae type b vaccine, PRP-T conjugate Miguelangel Harkins DO Work Phone: [facility] Work Phone: 03-06-1996 hepatitis B vaccine, pediatric or pediatric/adolescent dosage Miguelangel Harkins DO Work Phone: [facility] 03-06-1996 poliovirus vaccine, inactivated Miguelangel Harkins DO Work Phone: [facility] Work Phone: 03-06-1996 trivalent poliovirus vaccine, live, oral Miguelangel Harkins DO Work Phone: [facility] 1995 hepatitis B vaccine, pediatric or pediatric/adolescent dosage Miguelangel Harkins DO Work Phone: [facility] Payers Date Payer Category Payer Medicaid [id number] 2022 Medicaid [id number] 2022 Medicaid [id number] 2020 Unknown MMO MMO [employer]US [id number] 2020-Present [phone] [address] [place] [address] PPO [id number] 2020 Unknown MMO MMO [employer]US [id number] 2020-Present [phone] [address] [place] [address] PPO [id number] 2016 Medicaid [employer] MEDICA[employer] [id number] 2016-Present [phone] [address] [place] [address] Medicaid [id number] Unknown [id number] Social History Date Type Detail Facility Assertion Tobacco smoking consumption unknown (finding) [facility] Work Phone: Start: 01-20-2012 End: 08-26-2022 Tobacco smoking status NHIS Occasional tobacco smoker [facility] Start: 01-20-2012 End: 02-15-2023 Cigarettes smoked current (pack per day) - Reported 0.5 [facility] Start: 01-20-2012 End: 08-26-2022 Tobacco use and exposure Smokeless tobacco non-user [facility] Start: 09-09-2021 End: 02-15-2023 Alcohol intake Current drinker of alcohol (finding) [facility] Start: 05-26-2021 End: 02-15-2023 History SDOH Alcohol Frequency 1 [facility] Start: 05-26-2021 History SDOH Alcohol Std Drinks 98 [facility] Start: 11-18-2017 History SDOH Alcohol Comment rarely [facility] Start: 05-26-2021 End: 02-15-2023 History SDOH Social Connections Phone 5 [facility] Start: 05-26-2021 End: 02-15-2023 History SDOH Social Connections Membership 2 [facility] Start: 05-26-2021 History SDOH Social Connections Living 7 [facility] Start: 05-26-2021 End: 02-15-2023 History SDOH Physical Activity DPW 3 [facility] Start: 05-26-2021 End: 02-15-2023 History SDOH Physical Activity MPS 6 [facility] Start: 05-25-2021 Education 12 [facility] Start: 1995 Sex Assigned At Female [facility] History of tobacco use Cigarette Smoker [facility] Work Phone: Start: 02-15-2023 History SDOH Social Connections Living 8 [facility] Start: 02-15-2023 End: 07-04-2023 Social connection and isolation panel [facility] Do you belong to any clubs or organizations such as oriental orthodox groups, unions, fraternal or athletic groups, or school groups? No [facility] Are you now , , , , never or living with a partner? Living with partner [facility] How often to you hav e a drink containing alcohol? Monthly or less [facility] How many standard dr inks containing alcohol do you have on a typical day? 3 or 4 [facility] How often do you hav e 6 or more drinks on 1 occasion? Never [facility] How hard is it for y ou to pay for the very basics like food, housing, medical care, and heating Not hard at all [facility] Do you feel stress - tense, restless, nervous, or anxious, or unable to sleep at night because your mind is troubled all the time - these days [OSQ] Very much [facility] (I/We) worried keith er (my/our) food would run out before (I/we) got money to buy more. Never true [facility] Start: 05-25-2021 Gender identity Identifies as female gender (finding) [facility] Start: 05-25-2021 Sexual orientation Heterosexual (finding) [facility] Start: 10-11-2023 Tobacco smoking status NHIS Never smoked tobacco (finding) [facility] Start: 10-11-2023 Never [facility] Start: 10-11-2023 No [facility] Functional Status Date Assessment Result Facility NEGATED: Highlighted row Functional performance Functional status health issues are not documented Disease [facility] Work Phone: Mental Status Date Assessment Result Facility 10-11-2023 Cognitive function Level Of Cons ciousness Awake;Alert;Appropriate [facility] Work Phone: NEGATED: Highlighted row Cognitive function [Interpretation] Cognitive status health issues are not documented Disease [facility] Work Phone: Clinical Notes 11-27-2021 to 07-05-2023 Miguelangel Harkins, - 07/05/2023 11:44 AM ESTTelephone Encounter - Alex Rubin APRN.CNP - 06/20/2023 3:48 PM EDTTelephone Encounter - Tawnya Elam LPN - 06/20/2023 2:33 PM EDT Note Date & Type Note Facility 07-05-2023 Note HNO ID: [id number] Author: Miguelangel Hakrins DO Service: ? Author Type: Physician Type: [...] NOTE This is a virtual visit using [employer] Zoom Video Visit. It required patient-provider interaction for the medical decision making as documented below. I have communicated my name and active licensure. The patient's identity and physical location were verified at the time of this visit. 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 Has trouble falling asleep and staying asleep at times. Also weight gain and fatigue concerns. Also admits that she has the tendency to overspend- maternal grandmother is [place]. No SI or HI She was restarted [...] and pain, has seen Orthopedics with Dr Taylro and had EMG/NCT which was normal, cervical [...] and he is now homeless living in [facility]. She has changed jobs since then from [employer] to [email or web address] which she enjoys but struggles financially [...] Onset Uterine Fibroids (more content not included)... [facility] 07-05-2023 History of Presen t illness [...] NOTE This is a virtual visit using DigiMeldom Video Visit. It required patient-provider interaction for the medical decision making as documented below. I have communicated my name and active licensure. The patient's identity and physical location were verified at the time of this visit. 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 Has trouble falling asleep and staying asleep at times. Also weight gain and fatigue concerns. Also admits that she has the tendency to overspend- maternal grandmother is on [place]. No SI or HI She was restarted [...] and he is now homeless living in [facility]. She has changed jobs since then from [employer] to [employer] which she enjoys but struggles financially to [...] which included preparing to see the patient, [id number] patient care, completing clinical documentation, performing a medically appropriate examination, counseling and educating the patient/family/caregiver, and ordering medications, tests, or procedures Miguelangel Harkins DO documented in this encounter [facility] 06-20-2023 Miscellaneous Notes Formattin g of this note is different from the original. PDMP website checked and validated. All prescriptions have been APPROPRIATELY filled. No suspicious activity was identified. 06/20/2023 by Alex Rubin 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 The following approved medication requests have been transmitted electronically. Requested Prescriptions Signed Prescriptions Disp Refills LORazepam (ATIVAN) 0.5 mg 20 tablet 1 Sig: Take 1 tablet by mouth two times a day as needed (panic attack symptoms) for up to 30 days. Authorizing Provider: ALEX RUBIN 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 Dinorah--05/24/23 Nov--07/05/23 Last refill--05/24/23 20 with 1 refill Last labs--11/28/21 documented in this encounter [facility] 05-24-2023 Note HNO ID: [id number] Author: Miguelangel Harkins, DO Service: ? Author [...] NOTE This is a virtual visit using [employer] Zoom Video Visit. It required patient-provider interaction for the medical decision making as documented below. I have communicated my name and active licensure. The patient's identity and physical location were verified at the time of this visit. 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 Has trouble falling asleep and staying asleep at times. Also weight gain and fatigue concerns. Also admits that she has the tendency to overspend- maternal grandmother is [place]. No SI or HI She was restarted [...] and he is now homeless living in [facility]. She has changed jobs since then from [employer] to [employer] which she enjoys but struggles financially to [...] (panic attack sympt (more content not included)... [facility] 02-15-2023 Note HNO ID: [id number] Author: Iesha Newell 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 Service: ? Author Type: Nurse Practitioner Type: [...] which included preparing to see the patient. [facility] 02-15-2023 Instructions Iesha Newell APRN.CNP - 02/15/2023 8:23 AM EDT Weight loss medications Contrave Liraglutide Semaglutide documented in this encounter [facility] 02-15-2023 History of Presen t illness Narrative [...] see the patient. documented in this encounter [facility] 08-27-2022 Miscellaneous Notes Formattin g of this note might be different from the original. Patient notified of results. . Patient verbalizes understanding. Jessy Rosario RN Phone call placed brief message to contact a nurse to review results. Cass Arnett LPN Negative for syphilis please notify thank you documented in this encounter [facility] 08-26-2022 Note HNO ID: [id number] Author: Lori Ozuna 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 Service: ? Author Type: Nurse Practitioner Type: [...] 7 weeks but has not seen her SPECIAL PROJECTS MANAGER yet. The history is provided by the patient. No russian language professor was used. Review of Systems Constitutional: Negative. [...] - neg Patient will follow up with SOFTWARE ENGINEERING PROJECT MANAGER as well. Lori Ozuna APRN.[facility] 08-26-2022 History of Presen t illness Narrative [...] 7 weeks but has not seen her SPECIAL PROJECTS MANAGER yet. The history is provided by the patient. No russian language professor was used. Review of Systems Constitutional: Negative. [...] - neg Patient will follow up with SOFTWARE ENGINEERING PROJECT MANAGER as well. Lori Ozuna APRN.CNP documented in this encounter [facility] 05-14-2022 Miscellaneous Notes Formattin g of this note might be different from the original. Please assist patient in making appointment to discuss options. Thank you, Alex Rust APRN.CNP Last OV was 03/23/22, do you want pt to have appointment to discuss increasing meds? documented in this encounter [facility] 03-31-2022 Miscellaneous Notes Formattin g of this [...] Chanel Padron Ma documented in this encounter [facility] 03-23-2022 History of Presen t illness Narrative [...] NOTE This is a virtual visit using Arden Reed video visit. 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 Has trouble falling asleep and staying asleep at times. Also weight gain and fatigue concerns. Also admits that she has the tendency to overspend- maternal grandmother is on [place]. No SI or HI She was restarted [...] which included preparing to see the patient, [id number] patient care, completing clinical documentation, obtaining and/or reviewing separately obtained history and performing a medically appropriate examination Miguelangel Harkins DO documented in this encounter [facility] 12-30-2021 History of Presen t illness Narrative [...] NOTE This is a virtual visit using Arden Reed video visit. 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 Has trouble falling asleep and staying asleep at times. Also weight gain and fatigue concerns. Also admits that she has the tendency to overspend- maternal grandmother is on [place]. No SI or HI She was restarted [...] which included preparing to see the patient, [id number] patient care, completing clinical documentation and ordering medications, tests, or procedures Miguelangel Harkins DO documented in this encounter [facility] 11-27-2021 History of Presen t illness Narrative [...] NOTE This is a virtual visit using Arden Reed video visit. 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 Has trouble falling asleep and staying asleep at times. Also weight gain and fatigue concerns. Also admits that she has the tendency to overspend- maternal grandmother is on [place]. No SI or HI HISTORY REVIEWED (electronic [...] which included preparing to see the patient, [id number] patient care, completing clinical documentation, obtaining and/or reviewing separately obtained history, performing a medically appropriate examination and ordering medications, tests, or procedures Miguelangel Harkins DO documented in this encounter [facility] Panic attack- Primary Panic disorder without agoraphobia Depression, major Major depressive disorder, single episode, unspecified Current moderate episode of major depressive disorder without prior episode (HCC) [facility] Diagnosis Manic behavior (HCC)- Primary Bipolar I disorder, single manic episode, unspecified Depression, major Major depressive disorder, single episode, unspecified Panic attack Panic disorder without agoraphobia Current moderate episode of major depressive disorder without prior episode (HCC) [facility] Diagnosis Panic attack Panic disorder without agoraphobia [facility] Diagnosis Rash of hand- Primary Sore throat Acute pharyngitis [facility] Diagnosis Obesity, Class II, BMI 35-39.9- Primary Obesity, unspecified [facility] Diagnosis Panic attack Panic disorder without agoraphobia documented [facility] Diagnosis Elevated TSH- Primary Nonspecific abnormal results of thyroid function study Panic attack Panic disorder without agoraphobia Manic behavior (HCC) Bipolar I disorder, single manic episode, unspecified Hyperglycemia Other abnormal glucose Fatigue, unspecified type [facility] noteNo assessment information availableCoProMedica [facility] Work Phone: Family History No Family [...] DATE CREATED AUTHOR AUTHOR'S ORGANIZ ATION 07/09/2023 [facility] DATE CREATED AUTHOR AUTHOR'S ORGANIZ ATION 10/18/2023 [facility] Source Comments (unrecognize d section and content) In the event this informatio n is protected by the Federal Confidentiality of Alcohol and Drug Abuse Patient Records regulations: The Federal rules restrict any use of the information to criminally investigate or prosecute any alcohol or drug abuse patient.[facility] the event this information is protected by the Federal Confidentiality of Alcohol and Drug Abuse Patient Records regulations: The Federal rules restrict any use of the information to criminally investigate or prosecute any alcohol or drug abuse patient.[facility] the event this information is protected by the Federal Confidentiality of Alcohol and Drug Abuse Patient Records regulations: The Federal rules restrict any use of the information to criminally investigate or prosecute any alcohol or drug abuse patient.[facility] the event this information is protected by the Federal Confidentiality of Alcohol and Drug Abuse Patient Records regulations: The Federal rules restrict any use of the information to criminally investigate or prosecute any alcohol or drug abuse patient.[facility] the event this information is protected by the Federal Confidentiality of Alcohol and Drug Abuse Patient Records regulations: The Federal rules restrict any use of the information to criminally investigate or prosecute any alcohol or drug abuse patient.[facility] the event this information is protected by the Federal Confidentiality of Alcohol and Drug Abuse Patient Records regulations: The Federal rules restrict any use of the information to criminally investigate or prosecute any alcohol or drug abuse patient.[facility] the event this information is protected by the Federal Confidentiality of Alcohol and Drug Abuse Patient Records regulations: The Federal rules restrict any use of the information to criminally investigate or prosecute any alcohol or drug abuse patient.[facility] the event this information is protected by the Federal Confidentiality of Alcohol and Drug Abuse Patient Records regulations: The Federal rules restrict any use of the information to criminally investigate or prosecute any alcohol or drug abuse patient.[facility] the event this information is protected by the Federal Confidentiality of Alcohol and Drug Abuse Patient Records regulations: The Federal rules restrict any use of the information to criminally investigate or prosecute any alcohol or drug abuse patient.[facility] the event this information is protected by the Federal Confidentiality of Alcohol and Drug Abuse Patient Records regulations: The Federal rules restrict any use of the information to criminally investigate or prosecute any alcohol or drug abuse patient.[facility] Reason for Visit (unrecogniz ed section and content) Reason Comments Follow Up Reason Comments red bumps on hands X 2 days Reason Comments Results Reason Comments Weight Problem Wants to discuss [facility] Specialty Diagnoses / Procedures Referred By Irma t Referred To Contact Family Medicine / FAMILY MEDICINE Diagnoses I would like to discuss Ozempic Procedures MYC OFFICE VISIT Self 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 Newell 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 [address] [place] [address] Referral ID Status Reason Start Date Expiration Date V isits Requested Visits Authorized [id number] Closed Patient Cleared - Qualified 100% FAS 02/09/2023 05/10/2023 99 99 Reason Onset Date Comments Refill Request 06/20/2023 Care Teams (unrecognized sec tion and content) N[employer]le [employer] Maker Relationship Specialty Start Date End Date Miugelangel Harkins, DO [address] [place] [address] PCP - General Family Practice 02/15/13 Noodle Catalyst Maker Relationship Specialty Start Date End Date Miguelangel Harkins, DO [address] [place] [address] PCP - General Family Practice 02/15/13 Noodle Catalyst Maker Relationship Specialty Start Date End Date Miguelangel Harkins DO [address] [place] [address] PCP - General Family Medicine 02/15/13 Noodle Catalyst Maker Relationship Specialty Start Date End Date Miguelangel Harkins DO [address] [place] [address] PCP - General Family Medicine 02/15/13 Noodle Catalyst Maker Relationship Specialty Start Date End Date Miguelangel Harkins DO [address] [place] [address] PCP - General Family Medicine 02/15/13 Noodle Catalyst Maker Relationship Specialty Start Date End Date Miguelangel Harkins DO [address] [facility] [place] [address] PCP - General Family Medicine 02/15/13 Noodle Catalyst Maker Relationship Specialty Start Date End Date Miguelangel Harkins DO [address] [facility] [place] [address] PCP - General Family Medicine 02/15/13 Team [...] BE BASED ON THE PRIMARY CLINICAL RECORDS. [employer] provides no warranty or guarantee of the accuracy or completeness of information in this document.
[2023-11-05 21:20] LABS: Absolute Lymphocyte Count 3.94 X10^3/uL (0.83-4.51); Absolute Neutrophil Count 5.9 X10^3/uL (2.0-7.7); Basophil# 0.09 X10^3/uL; Basophil% 0.8 % (0-1); Eosinophil# 0.41 X10^3/uL; Eosinophils% 3.6 % (0-5); Hematocrit 38.5 % (37-47); Hemoglobin 12.5 g/dL (12.0-15.0); Lymphocyte # 3.94 X10^3/ul (0.83-4.51); Lymphocyte % 34.8 % (19-41); Mean Corp Hgb Conc 32.5 g/dL (32-36); Mean Corpuscular Hgb 28.3 pg (27.0-32.0); Mean Corpuscular Volume 87.3 fL (81-99); Mean Platelet Vol. 9.6 fl (6.2-12.0); Monocyte# 0.97 X10^3/uL; Monocyte% 8.6 % (0-10); NRBC Flagged by Analyzer 0 % (0-5); Neutrophil # 5.87 X10^3/uL (2.7-7.7); Neutrophil % 51.9 % (47-70); Platelet Count 413 K/mm3 (150-450); RBC Distribution Width CV 11.9 % (11.6-14.6); RBC Distribution Width SD 38.5 fl (35.1-43.9); Red Blood Count 4.41 M/mm3 (4.2-5.4); White Blood Count 11.3 K/mm3 (4.4-11.0)
[2023-11-05 21:29] LABS: Internal QC Validated? YES +Cl - CLEAR BKGD; Pregnancy, Serum, hCG Quali. NEGATIVE Negative
[2023-11-05 21:37] LABS: ALB/GLOB Ratio 0.9 RATIO (0.9-2.4); AST(SGOT) 17 U/L (15-37); Alanine Aminotransfer ALT/SGPT 28 U/L (13-56); Albumin, Serum 3.4 g/dL (3.2-5.0); Alkaline Phosphatase 71 U/L (45-117); Anion Gap 4 (5-15); BUN 8 mg/dL (7-18); Calcium,Total 8.6 mg/dL (8.5-10.1); Chloride 109 mmol/L (98-107); EST Glomerular Filtration Rate 90 mL/min (>60); Est Glom Filt Rate - Afr Amer 109 mL/min (>60); Estimated Creatinine Clearance 129.52 ml/min; Globulin 3.8 g/dL (2.2-4.2); Glucose 183 mg/dL (74-106); Lipase 49 U/L (13-75); Potassium 3.7 mmol/L (3.5-5.1); Protein, Total 7.2 g/dL (6.4-8.2); Sodium Level 138 mmol/L (136-145)
[2023-11-05 22:06] VITALS: BP 144/78; PULSE 70; RESP 16; TEMP 36.8; O2SAT 100
== END 2023-11-05 22:07 | disposition home or self-care (01) ==
PROVIDERS: Physician Assistant; Emergency Provider Emergency Medicine; PCP Student in an Organized Health Care Education/Training Program; Visit Provider Emergency Medicine
DX: R10.11 Right upper quadrant pain (principal); F17.210 Nicotine dependence, cigarettes, uncomplicated; F17.290 Nicotine dependence, other tobacco product, uncomplicated
CPT/HCPCS: 80053; 83690; 84703; 85025; 96374; 99284

== ENCOUNTER → 2024-10-04 | Outpatient (CLI) | payer MEDICAID, SELFPAY | END | disposition home or self-care (01) | LOC: LABSPEC 16:20 | PROVIDERS: PCP Student in an Organized Health Care Education/Training Program; Referring Provider Nurse Practitioner Women's Health; Visit Provider Nurse Practitioner Women's Health | DX: N89.8 Other specified noninflammatory disorders of vagina (principal) | CPT/HCPCS: 87070; 87205 ==

== ENCOUNTER → 2025-03-26 | Outpatient (CLI) | payer MEDICAID, SELFPAY ==
[2025-03-29 06:07] LABS: Chlamydia By Nucleic Acid AMP Negative (Negative); Gonococcus By Nucleic Acid AMP Negative (Negative)
== END | disposition home or self-care (01) ==
LOC: LABSPEC 15:19
PROVIDERS: PCP Student in an Organized Health Care Education/Training Program; Referring Provider Advanced Practice Midwife; Visit Provider Advanced Practice Midwife
DX: O09.90 Supervision of high risk pregnancy, unspecified, unspecified trimester (principal); Z3A.00 Weeks of gestation of pregnancy not specified
CPT/HCPCS: 87086; 87088; 87491; 87591

== ENCOUNTER 2025-04-08 09:27 | Outpatient (CLI) | payer MEDICAID, SELFPAY ==
[2025-04-08 13:00] LABS: Hematocrit 38.3 % (37-47); Hemoglobin 12.8 g/dL (12.0-15.0); Immature Granulocytes Count 0.030 X10^3/uL (0.0-0.0); Mean Corp Hgb Conc 33.4 g/dL (32-36); Mean Corpuscular Volume 88.5 fL (81-99); Mean Platelet Vol. 9.6 fl (6.2-12.0); NRBC Flagged by Analyzer 0 % (0-5); Platelet Count 372 K/mm3 (150-450); RBC Distribution Width CV 12.4 % (11.6-14.6); RBC Distribution Width SD 40.5 fl (35.1-43.9); Red Blood Count 4.33 M/mm3 (4.2-5.4); White Blood Count 8.9 K/mm3 (4.4-11.0)
[2025-04-08 13:29] LABS: HIV Nonreactive (Nonreactive); Hepatitis B Surface Antigen Nonreactive (Nonreactive); Hepatitis C Antibody Nonreactive (Nonreactive); Syphilis Antibodies Nonreactive (Nonreactive)
== END 2025-04-08 23:59 | disposition home or self-care (01) ==
PROVIDERS: PCP Student in an Organized Health Care Education/Training Program; Referring Provider Advanced Practice Midwife; Visit Provider Advanced Practice Midwife
DX: O09.299 Supervision of pregnancy with other poor reproductive or obstetric history, unspecified trimester (principal); O99.210 Obesity complicating pregnancy, unspecified trimester; Z86.32 Personal history of gestational diabetes; Z3A.09 9 weeks gestation of pregnancy
CPT/HCPCS: 36415; 83036; 85025; 86703; 86762; 86780; 86803; 86850; 86900; 86901; 87340

== ENCOUNTER → 2025-07-24 | Outpatient (CLI) | payer MEDICAID, SELFPAY ==
--- NOTE | 2025-07-24 12:04 | US_ITS ---
PROCEDURE: OB LIMITED WITH BIOMETRICS 07/24/2025 REASON FOR EXAM: GROWTH TECHNIQUE: Procedure Code: USOBGROWTH Modality: US Procedure: OB LIMITED WITH BIOMETRICS COMPARISON: None FINDINGS Cephalic position with cardiac activity of 153 bpm. Maximum vertical pocket of 3.7 cm. Placenta is anterior position with grade 0. Cervical length is 4.4 cm. Closed cervix. BPD of 6.3, OFD of the 8.3, HC of 23.5, AC of 21.5, and FL of 4.9 cm corresponding with average gestational age of 25 weeks and 6 days with NICOLE of 10/31/2025. Biometry results are within normal limits. Estimated weight of 891 g (22 percentile). US/OB Limited With Biometrics IMPRESSION: Sonographic gestational age of 25 weeks and 6 days with NICOLE of 10/31/2025. Bio metry results as above, grossly within normal limits. Reading Location: [id number]
== END | disposition home or self-care (01) ==
LOC: US 12:01
PROVIDERS: PCP Student in an Organized Health Care Education/Training Program; Referring Provider Obstetrics & Gynecology; Visit Provider Obstetrics & Gynecology
DX: O24.319 Unspecified pre-existing diabetes mellitus in pregnancy, unspecified trimester (principal); Z3A.00 Weeks of gestation of pregnancy not specified
CPT/HCPCS: 76816

== ENCOUNTER → 2025-08-07 | Outpatient (CLI) | payer MEDICAID, SELFPAY ==
[2025-08-07 11:07] LABS: Hematocrit 36.1 % (37-47); Hemoglobin 11.8 g/dL (12.0-15.0); Immature Granulocytes Count 0.040 X10^3/uL (0.0-0.0); Mean Corp Hgb Conc 32.7 g/dL (32-36); Mean Corpuscular Volume 87.6 fL (81-99); Mean Platelet Vol. 10.3 fl (6.2-12.0); NRBC Flagged by Analyzer 0 % (0-5); Platelet Count 373 K/mm3 (150-450); RBC Distribution Width CV 12.5 % (11.6-14.6); RBC Distribution Width SD 40.0 fl (35.1-43.9); Red Blood Count 4.12 M/mm3 (4.2-5.4); White Blood Count 12.0 K/mm3 (4.4-11.0)
[2025-08-07 11:30] LABS: HIV Nonreactive (Nonreactive); Syphilis Antibodies Nonreactive (Nonreactive)
== END | disposition home or self-care (01) ==
PROVIDERS: Obstetrics & Gynecology; PCP Student in an Organized Health Care Education/Training Program; Visit Provider Obstetrics & Gynecology
DX: O09.92 Supervision of high risk pregnancy, unspecified, second trimester (principal)
CPT/HCPCS: 36415; 85025; 86703; 86780

== ENCOUNTER → 2025-08-21 | Outpatient (CLI) | payer MEDICAID, SELFPAY ==
--- NOTE | 2025-08-21 08:55 | US_ITS ---
PROCEDURE: OB LIMITED WITH BIOMETRICS 08/21/2025 REASON FOR EXAM: GROWTH TECHNIQUE: Procedure Code: USOBGROWTH Modality: US Procedure: OB LIMITED WITH BIOMETRICS COMPARISON: 07/24/2025 FINDINGS Number: 1 Position: Vertex Placental Position: Anterior, grade 1 Placental Abnormalities: No evidence of previa. DIMENSIONS: Biparietal Diameter: 7.4 cm/29 weeks 6 days Head Circumference: 27.7 cm/30 weeks 2 days Abdominal Circumference: 26.2 cm/30 weeks 3 days Femur Length: 5.7 cm/29 weeks 5 days ESTIMATED WEIGHT: 1523 g +/-228 g ESTIMATED WEIGHT PERCENTILE (24+ weeks): 30th ESTIMATED GESTATIONAL AGE: By Ultrasound: 30 weeks 0 days ESTIMATED DATE OF DELIVERY: By Ultrasound: 10/30/2025 BIOPHYSICAL ASSESSMENT: Amniotic Fluid Volume: 10.8 with largest pocket of 4.5 cm Amniotic Fluid Index: (8-24 cm normal range) Cardiac Motion: 147 (average) Trunk and Limb Motion: Present. MATERNAL ANATOMY: Adnexa: Neither maternal ovary is successfully identified. Cervical Length (if measured): ANATOMY: Detailed anatomical survey of the anatomy was not performed due to advanced age. Normal growth noted since the previous study US/OB Limited With Biometrics IMPRESSION: Single live intrauterine at 30 weeks 0 days by current ultrasound wit h a NICOLE of 10/30/2025. Heart rate of 147 beats per minute. No suspicious sonographic findings, normal growth since the previo us study Reading Location: [id number]
== END | disposition home or self-care (01) ==
LOC: OPUS 08:53
PROVIDERS: PCP Student in an Organized Health Care Education/Training Program; Referring Provider Obstetrics & Gynecology; Visit Provider Obstetrics & Gynecology
DX: O24.313 Unspecified pre-existing diabetes mellitus in pregnancy, third trimester (principal); Z3A.30 30 weeks gestation of pregnancy
CPT/HCPCS: 76816